=== PATIENT | male | born 1975 | race Caucasian/White ===

== ENCOUNTER 2019-06-11 09:07 | Emergency (ER) | payer BC, SELFPAY ==
--- NOTE | ~2019-06-11 | XR_ITS ---
EXAMINATION: XR chest 2V 06/11/2019 09:27 INDICATION: Cough, shortness of breath, fever. PROCEDURE: 2 view chest COMPARISON: 08/17/2012 FINDINGS: The lungs are clear. The cardiomediastinal silhouette is within normal limits. There are no pleural effusions. There is no pneumothorax suspected. IMPRESSION: 1: NO ACUTE CARDIOPULMONARY DISEASE. Reviewed, dictated and finalized at location B. LAWYER
[2019-06-11 09:14] VITALS: BP 147/91; PULSE 72; RESP 17; TEMP 37.2; O2SAT 99
--- NOTE | 2019-06-11 09:18 | ED.URI ---
HPI - URI/Sore Throat General Chief Complaint: Fever Stated Complaint: fever, fatigue Time Seen by Provider: 06/11/19 09:16 Source: patient and RN notes reviewed Mode of arrival: ambulatory Limitations: no limitations History of Present Illness HPI Narrative: Pt is a 43 y/o male who presents to the ED with c/o flu-like symptoms starting 5 days ago. He notes that he has been tired and fatigued for the past 5 days. Pt also reports a mild cough, intermittent fever, nausea, and diarrhea for the past several days. He notes that his temperature was 102.5 degrees several days ago, but states that he has been able to keep his temperature down with Ibuprofen and cold medicine. Pt notes that he has also had rt lower chest pain, which he states has been intermittent for the past several years. He denies any sore throat, vomiting, dysuria, or decreased intake. MD elicited complaint: other (flu-like symptoms) Onset (ago): day(s) (5) Relieving factors: NSAID and OTC cold medicine Associated symptoms: fever, cough, chest pain (rt lower chest pain), nausea, diarrhea and other (fatigue) Treatments prior to arrival: cold medicine Related Data Allergies Allergy/AdvReac Type Severity Reaction Status Date / Time No Known Allergies Allergy Unverified 11/29/13 19:48 Review of Systems Review of Systems: All systems reviewed & are unremarkable except as noted in HPI and below Constitutional: Constitutional: Denies chills, Reports fatigue, Reports fever(s), Denies headache(s), Denies weakness and Denies other (decreased intake) ENT: Denies headache(s), Denies neck pain and Denies sore throat Cardiovascular: Cardiovascular: Reports chest pain (rt lower chest pain) and Denies dyspnea Respiratory: Respiratory: Reports cough and Denies dyspnea Gastrointestinal: Gastrointestinal: Denies abdominal pain, Reports diarrhea, Reports nausea and Denies vomiting Genitourinary: Genitourinary: Denies hematuria and Denies dysuria Musculoskeletal: Musculoskeletal: Denies back pain and Denies neck pain PMFSH Past Medical History Medical History HLD (hyperlipidemia) HTN (hypertension) Rectal bleeding Sciatica Sleep apnea uses CPAP at night Surgical History Surgical History No significant past surgical history Family History Family History (Updated 07/16/13 @ 22:43 by DOCTOR UNKNOWN) Father Patient's father is Social History Social History Second hand tobacco smoke exposure: No Alcohol intake: current Gender identity (if verbalized by the patient): Male Exam Const: General: no acute distress and well developed Orientation/consciousness: oriented to person, oriented to place, oriented to time and patient oriented x3 HENMT: Head: normocephalic Neck: Neck: normal visual inspection and full ROM Chest: Chest palpation & inspection: normal inspection of the chest and no tenderness Resp: Effort & Inspection: normal respiratory effort Auscultation: clear to auscultation bilaterally Cardio: Rate: regular rate Rhythm: regular rhythm GI: GI Palp: No abdominal tenderness and Yes Soft to palpation Skin: General skin exam: normal color and turgor normal Neuro: General: oriented to person, oriented to place, oriented to time and patient oriented x3 Cognition (Neuro): normal cognition Extrem: General: normal to inspection, full ROM and no pedal edema Psych: Appearance: grossly normal Mental Status: mental status grossly normal Affect: normal affect Course Vital Signs Vital signs: Vital Signs Temperature 37.2 C 06/11/19 09:14 Pulse Rate 72 06/11/19 09:14 Respiratory Rate 17 06/11/19 09:14 Blood Pressure 147/91 H 06/11/19 09:14 Pulse Oximetry 99 06/11/19 09:14 Temperature 37.2 C 06/11/19 09:14 Pulse Rate 72 06/11/19 09:14 Respiratory Rate
[2019-06-11 09:48] LABS: Basophils Percent Auto 0.3 % (0.2-1.2); Eosinophils Percent Auto 0.2 % (0-4.4); Hematocrit 45.2 % (42.0-52.0); Hemoglobin 15.2 g/dL (14.0-18.0); Immature Granulocyte Absolute 0.03 K/mm3 (0.00-0.031); Immature Granulocyte Percent A 0.5 % (0-0.5); Lymphocytes Absolute Auto 1.17 K/mm3 (0.9-3.2); Lymphocytes Percent Auto 17.9 % (18.3-44.2); Mean Corpuscular HGB Conc 33.6 g/dl (32-36); Mean Corpuscular Hemoglobin 30.9 pg (26-34); Mean Corpuscular Volume 91.9 fl (80-100); Mean Platelet Volume 9.3 fl (7.4-10.4); Monocytes Absolute Auto 0.9 K/mm3 (0.1-0.6); Monocytes Percent Auto 13.3 % (2.6-8.5); Neutrophils Absolute Auto 4.4 K/mm3 (1.3-6.7); Neutrophils Percent Auto 67.8 % (45.5-73.1); Platelet Count Result 218 k/mm3 (150-375); Red Blood Count 4.92 M/mm3 (4.6-6.20); Red Cell Distribution Width 12.5 % (11.5-14.5); White Blood Count 6.5 K/mm3 (4.5-10.0)
[2019-06-11 10:02] LABS: Alanine Aminotransferase 21 U/L (4-50); Albumin Level 4.4 g/dL (3.5-5.1); Alkaline Phosphatase 66 U/L (38-126); Aspartate Amino Transferase 27 U/L (17-59); Bilirubin,Total 0.4 mg/dL (0.2-1.3); Blood Urea Nitrogen 12 mg/dL (9-20); Calcium 9.3 mg/dL (8.4-10.2); Carbon Dioxide 28 mmol/L (22-30); Chloride 102 mmol/L (98-107); Estimated CRCL calculation 89 ml/min; Estimated Glomerular Filt Rate > 60; Glucose 114 mg/dL (75-110); Potassium 4.1 mmol/L (3.4-5.0); Sodium 136 mmol/L (137-145)
[2019-06-11 10:20] LABS: Add Urine Microscopic? YES; Appearance Urine Clear (Clear); Bacteria Urine Trace /hpf; Bilirubin Urine Negative (Negative); Blood Urine Negative (Negative); Color Urine Yellow (Yellow); Glucose Urine UA Negative (Negative); Ketones Urine Trace mg/dL (Negative); Leukocyte Esterase Ur Negative LEU/UL (Negative); Mucus Urine Rare /lpf; Nitrate Urine Negative (Negative); Protein Urine Negative (Negative); RBC Urine 0-2 /hpf (0-2); Urobilinogen Urine Negative mg/dL (<2.0); WBC Urine 0-3 /hpf
[2019-06-11 10:42] VITALS: BP 142/85; PULSE 62; RESP 20; O2SAT 98
== END 2019-06-11 10:43 | disposition home or self-care (01) ==
PROVIDERS: Emergency Provider Emergency Medicine; PCP Emergency Medicine
DX: J10.1 Influenza due to other identified influenza virus with other respiratory manifestations (principal); E78.5 Hyperlipidemia, unspecified; I10 Essential (primary) hypertension; G47.30 Sleep apnea, unspecified
CPT/HCPCS: 36415; 71046; 80053; 81001; 85025; 87804; 99283

== ENCOUNTER 2020-06-07 07:40 | Outpatient (CLI) | payer BC, SELFPAY ==
--- NOTE | 2020-06-07 | EST_ITS ---
Patient Info Name: Cash Callejas Age: 44 years : 1975 Gender: Male Ht: 69 in Wt: 195 lbs BSA: 2.10 m2 Exam Date: 06/07/2020 11:04 AM Exam Location: [facility] Stress Patient Status: Outpatient Admit Date: 06/07/2020 Staff Ordering Physician: Armando Becker DO Attending Provider: Armando Becker DO Exercise Technologist: Curt Man RDCS, RT Exercise Physician: Armando Becker DO Exam Type: CA stress leydi w NM Study Info A regadenoson stress test was performed. Summary 1. 1. Negative lexiscan stress test for ischemic ST changes by ECG criteria. 2. 2. Stable hemodynamics throughout the test. 3. 3. Nuclear scan to follow and will be reported separately. Please correlate with it. 4. 4. Patient informed of the above results. Protocol: Lexiscan Stress ECG Details Stage: REST Duration (min): 1 min : 8 sec HR (bpm): 62 SBP (mmHg): 115 DBP (mmHg): 81 Stage: REST Duration (min): 15 min : 34 sec HR (bpm): 61 SBP (mmHg): 115 DBP (mmHg): 81 Stage: STAGE 1 Duration (min): 0 min : 59 sec HR (bpm): 97 SBP (mmHg): 128 DBP (mmHg): 88 Stage: RECOVERY Duration (min): 1 min : 0 sec HR (bpm): 86 SBP (mmHg): 128 DBP (mmHg): 88 Stage: RECOVERY Duration (min): 2 min : 0 sec HR (bpm): 88 SBP (mmHg): 120 DBP (mmHg): 81 Stage: RECOVERY Duration (min): 3 min : 0 sec HR (bpm): 82 SBP (mmHg): 115 DBP (mmHg): 78 Stage: RECOVERY Duration (min): 3 min : 39 sec HR (bpm): 84 SBP (mmHg): 115 DBP (mmHg): 78 Rest HR: 61 bpm Peak HR: 97 bpm Rest Sys BP: 115 mmHg Peak Sys BP: 128 mmHg Max Pred HR: 175 bpm % Max Pred HR: 55 % Target HR: 149 bpm Max RPP: 12,416 bpm*mmHg Termination Reason: Completed protocol Cardiac Symptoms: Shortness of breath Total Time: 1 min : 0 sec Rest Howe BP: 81 mmHg Peak Howe BP: 88 mmHg Total Dose: 0.4 mg Resting ECG Sinus rhythm, borderline T wave in inferior leads. Stress ECG No ST changes. Arrhythmias None. Report Signatures
--- NOTE | ~2020-06-07 | NM_ITS ---
EXAMINATION: NM leydi stress w perfusion DATE: 06/07/2020 12:52 INDICATION: Chest pain. TECHNIQUE: Rest images were obtained following intravenous administration of 9.44 mCi Tc99m tetrofosm in (Myoview). The patient was infused intravenously with Lexiscan (regadenoson). Then, 28.3 mCi Tc99m tetrofosmin (Myoview) was administered intravenously, and prone and supine stress images were obtain ed. Data was reconstructed into short axis and horizontal and vertical long axis SPECT images. Gated SPECT images were also obtained. COMPARISON: Myocardial perfusion imaging 08/18/2012, chest CT 11/03/2016 FINDINGS: There is no definite reversible or fixed perfusion abnormality to suggest ischemia or infar ction. There is no segmental wall motion abnormality. Left ventricular ejection fraction measures 6 1%. IMPRESSION: 1. No definite ischemia or infarct. 2. Normal left ventricular ejection fraction measuring 61%. Reviewed, dictated and finalized at location A. RT SPECIALIST
--- NOTE | 2020-06-07 07:48 | ECHO_ITS ---
Patient Info Name: Cash Callejas Age: 44 years : 1975 Gender: Male Ht: 71 in Wt: 195 lbs BSA: 2.12 m2 HR: 58 bpm BP: 128 / 88 mmHg Heart Rhythm: Bradycardia Exam Date: 06/07/2020 8:03 AM Exam [facility] Patient Status: Outpatient Admit Date: 06/07/2020 Staff Ordering Physician: Armando Becker DO Turner Machine Operator: Aurelia Lott RDCS Attending Provider: Armando Becker DO Referring Physician: Eugenio BERNAL; Exam Type: CA echo doppler color flow Study Info Indications R07.9 - Chest pain, unspecified R06.00 - Dyspnea, unspecified Complete two-dimensional, color flow and Doppler transthoracic echocardiogram is performed. Summary 1. Complete two-dimensional, color flow and Doppler transthoracic echocardiogram is performed. 2. Left ventricular chamber dimension is normal. 3. Left ventricular systolic function is normal, estimated at 60-65%. 4. There is mildly increased left ventricular wall thickness. 5. The left ventricular diastolic function is grade II diastolic dysfunction. 6. E/e' 10 is mildly elevated. 7. There is trace tricuspid valve regurgitation. 8. No pulmonary hypertension, estimated pulmonary arterial systolic pressure is 34 mmHg. 9. There is trace pulmonic regurgitation. Left Ventricle E/e' 10 is mildly elevated. Left ventricular chamber dimension is normal. Left ventricular systolic function is normal, estimated at 60-65%. There is mildly increased left ventricular wall thickness. The left ventricular diastolic function is grade II diastolic dysfunction. Right Ventricle Right ventricular chamber dimension is normal. Right ventricular systolic function is normal. Left Atria Left atrial chamber dimension is normal. Right Atria Right atrial chamber dimension is normal. Aortic Valve The aortic valve is trileaflet. There is no aortic valve stenosis. There is no aortic valve regurgitation. Pulmonic Valve There is trace pulmonic regurgitation. Mitral Valve There is no mitral valve stenosis. There is no mitral valve regurgitation. Tricuspid Valve There is trace tricuspid valve regurgitation. No pulmonary hypertension, estimated pulmonary arterial systolic pressure is 34 mmHg. Pericardium/Pleural There is no pericardial effusion. Inferior Vena Cava Normal inferior vena cava with >50% collapse upon inspiration consistent with normal right atrial pressure, 5 mmHg. Aorta The aortic root size at the sinus of Valsalva is normal. Left Ventricular Outflow Tract Name Value Normal LVOT 2D LVOT Diameter 2.2 cm LVOT Doppler LVOT Peak Gradient 6 mmHg LVOT Mean Gradient 2 mmHg LVOT VTI 26 cm LVOT VTI/AV VTI Ratio 0.8 LVOT Stroke Volume 98 ml LVOT CO 15.7 l/min LVOT CI 7.4 l/min/m2 Pulmonic Valve Name Value Normal ------
== END 2020-06-07 07:41 | disposition home or self-care (01) ==
PROVIDERS: PCP Emergency Medicine; Visit Provider Internal Medicine Cardiovascular Disease
DX: R07.89 Other chest pain (principal); R06.00 Dyspnea, unspecified; G47.30 Sleep apnea, unspecified
CPT/HCPCS: 78452; 93017; 93306; A9502; J2785

== ENCOUNTER → 2020-11-25 03:51 | Outpatient (CLI) | payer BC, SELFPAY ==
[2020-11-26 01:36] LABS: SARS-CoV-2 RNA PCR Negative
== END ==
PROVIDERS: PCP Emergency Medicine; Visit Provider Surgery
DX: Z01.812 Encounter for preprocedural laboratory examination (principal); K64.9 Unspecified hemorrhoids; Z20.822 Contact with and (suspected) exposure to COVID-19
CPT/HCPCS: C9803; U0003; U0005

== ENCOUNTER 2020-11-29 01:34 | Day surgery (SDC) | payer BC, SELFPAY ==
[2020-11-22 17:49] VITALS: BMI 28.3
--- NOTE | 2020-11-28 13:51 | WPDANESEPPF ---
Anes - Initial Pre Proc Eval Procedure: Operation Date: 11/29/20 09:30 Proposed Procedures p Rectal Exam Under Anesthesia, - Roney John DO s Transanal Hemorrhoid Dearterialization - Roney John DO Date/Time: 11/28/20 13:51 Surgeon: Roney John DO Pre Op Diagnosis: grade 2 internal hemorrhoid Patient Data Age: 45 Gender: M Height: 1.79 m Weight: 90.9 kg Allergies Allergy/AdvReac Type Severity Reaction Status Date / Time No Known Allergies Allergy Verified 11/29/20 08:04 Home Medications Medication Instructions Recorded Confirmed Type alprazolam 1 mg tablet 1 mg PO HS 04/18/20 11/22/20 History rosuvastatin 20 mg tablet 20 mg PO DAILY 04/18/20 11/22/20 History Lacto.acidophilus-Bif.animalis 1 cap PO DAILY 11/22/20 11/29/20 History [Daily Probiotic] ascorbate calcium (vitamin C) 1,000 mg PO DAILY 11/22/20 11/29/20 History cholecalciferol (vitamin D3) 125 mcg PO DAILY 11/22/20 11/29/20 History [Vitamin D3] vitamin B complex [B 1 tablet PO DAILY 11/22/20 11/22/20 History Complex-Vitamin B12] Patient hx anesthesia problems: none Family hx anesthesia problems: none PMFSH Past Medical History Medical History (Updated 10/26/20 @ 15:56 by Klarissa Davis) HLD (hyperlipidemia) HTN (hypertension) Intermittent palpitations Rectal bleeding Sciatica Sleep apnea uses CPAP at night Syncope and collapse Surgical History Surgical History No significant past surgical history Family History Family History Father Patient's father is Sibling Hypertension Mother Diabetes mellitus Social History Social History Smoking packs per day: 1 Smoking cigarettes per day: 20.0 Years smoked: 30 Smoking pack-years: 30.00 Smoking status: Former smoker Tobacco type: cigarettes Second hand tobacco smoke exposure: No Smoking end date: 09/05/18 Alcohol intake: current Drinks per week: 6 Substance use type: marijuana Living arrangements: with family Gender identity (if verbalized by the patient): Male Spiritual care concerns: No Anes - Eval Final PreProcedure Day of Procedure 11/28/20 13:51 Patient weight: overweight Heart: regular rate and rhythm Lungs: clear to auscultation and normal air movement Airway: Mallampati scale class II Neurological: alert and oriented Last oral intake: >/= 8 hours ASA classification: III Emergent: no Anesthetic plan: proceed Anesthesia type and monitoring: general ETT and standard monitoring Informed Consent: The patient's anesthetic plan and its attendant risks and benefits were discussed with the patient/family/POA. Questions were solicited and answers provided to the satisfaction of the patient/family/POA.
[2020-11-29] VITALS (8 sets, daily range): BP systolic 106–132; BP diastolic 60–89; PULSE 56–68; RESP 10–16; TEMP 36.4–36.6; O2SAT 96–100; BMI 28.4
[2020-11-29] MEDS: LACTATED RINGERS 1,000 ML 30 ML IV CONT ×2 (08:10→11:48)
[2020-11-29] MEDS: ACETAMINOPHEN 500 MG TABLET 1000 MG PO (08:20)
[2020-11-29] MEDS: KETOROLAC 15 MG/ML VIAL (*BKC) IV PUSH (08:20)
--- NOTE | 2020-11-29 09:22 | PM.IMHP ---
H&P: HPI History of Present Illness Date/Time: 11/29/20 09:22 Chief Complaint: Bleeding internal hemorrhoids Narrative: This is a 45-year-old man who presents for hemorrhoid surgery. He was experiencing internal hemorrhoid bleeding. Discussions were made with the patient and decision was made to proceed with THC procedure. He reports no changes since being seen in the office. Review of Systems Review of Systems: All systems reviewed & are unremarkable except as noted in HPI and below Constitutional: Constitutional: Denies chills, Denies fever(s), Denies headache(s) and Denies weight loss Eyes: Eyes: Denies change in vision ENT: Denies dizziness, Denies headache(s), Denies neck mass and Denies throat swelling Cardiovascular: Cardiovascular: Denies chest pain, Denies lightheadedness and Denies dyspnea Respiratory: Respiratory: Denies cough, Denies dyspnea and Denies wheezing Gastrointestinal: Gastrointestinal: Denies abdominal pain, Denies change in bowel habits, Denies nausea and Denies vomiting Genitourinary: Genitourinary: Denies hematuria and Denies dysuria Musculoskeletal: Musculoskeletal: Reports as per HPI Integumentary/Breasts: Skin/Breast: Reports as per HPI Neurologic: Denies dizziness and Denies headache(s) Allergic/Immunologic: Allergic/Immunologic: Denies throat swelling and Denies wheezing [facility] Past Medical History Medical History (Updated 10/26/20 @ 15:56 by Klarissa Davis) HLD (hyperlipidemia) HTN (hypertension) Intermittent palpitations Rectal bleeding Sciatica Sleep apnea uses CPAP at night Syncope and collapse Surgical History Surgical History No significant past surgical history Family History Family History Father Patient's father is Sibling Hypertension Mother Diabetes mellitus Social History Social History Smoking packs per day: 1 Smoking cigarettes per day: 20.0 Years smoked: 30 Smoking pack-years: 30.00 Smoking status: Former smoker Tobacco type: cigarettes Second hand tobacco smoke exposure: No Smoking end date: 09/05/18 Alcohol intake: current Drinks per week: 6 Substance use type: marijuana Living arrangements: with family Gender identity (if verbalized by the patient): Male Spiritual care concerns: No Meds Home Medications and Allergies Home Medications Medication Instructions Recorded Confirmed Type alprazolam 1 mg tablet 1 mg PO HS 04/18/20 11/22/20 History rosuvastatin 20 mg tablet 20 mg PO DAILY 04/18/20 11/22/20 History Lacto.acidophilus-Bif.animalis 1 cap PO DAILY 11/22/20 11/29/20 History [Daily Probiotic] ascorbate calcium (vitamin C) 1,000 mg PO DAILY 11/22/20 11/29/20 History cholecalciferol (vitamin D3) 125 mcg PO DAILY 11/22/20 11/29/20 History [Vitamin D3] vitamin B complex [B 1 tablet PO DAILY 11/22/20 11/22/20 History Complex-Vitamin B12] Allergies Allergy/AdvReac Type Severity Reaction Status Date / Time No Known Allergies Allergy Verified 11/29/20 08:04 Vital Signs Vital Signs - 24 hr 11/29/20 07:55 Temperature 36.6 C Pulse Rate 68 Respiratory Rate 14 Blood Pressure 127/84 Pulse Oximetry 98 Exam Const: General: no acute distress and alert Orientation/consciousness: patient oriented x3 HENMT: Head: normocephalic and atraumatic Ears: hearing grossly normal bilaterally General nose exam: Normal nares present Mouth: Yes Normal oral and palatal mucosa present Eyes: Periorbital: periorbital findings normal Sclera: sclerae normal EOM: EOMs intact bilaterally Neck: Neck: normal visual inspection, no lymphadenopathy and trachea midline Chest: Chest palpation & inspection: normal inspection of the chest Resp: Effort & Inspection: normal respiratory effort Auscultation:
--- NOTE | 2020-11-29 09:25 | WPDHPUPDATE1 ---
History and Physical Update Update Date/Time: 11/29/20 09:25 History and Physical has been reviewed, including an updated exam of the patient. There are NO changes in the patient's condition. Risks, benefits, and alternatives have been discussed and questions answered. Patient agrees to proceed with procedure.
[2020-11-29] MEDS: ceFAZolin 2 GM/D5W 50 ML 2 GM/50 ML BAG IVPB (09:45)
[2020-11-29] MEDS: BUPIVACAINE/EPINEPHRINE 0.5% 50 ML VIAL (10:12)
--- NOTE | 2020-11-29 10:38 | W.PM.PROC2 ---
Procedure Note - Detailed Date of Procedure 11/29/20 Pre-op Diagnosis grade 2 internal hemorrhoid Post-op Diagnosis same Procedure Performed 1. Multiple hemorrhoid ligation (Transanal hemorrhoid dearterialization procedure) Surgeon Roney John, DO Anesthesia general and local ( 0.5% bupivacaine with epinephrine) Indications This is a 45-year-old man who presented with rectal bleeding. He has been experiencing bleeding after bowel movements for months. He has had a recent colonoscopy. He was found to have internal hemorrhoids on exam. Discussions were made with the patient about treatment options and decision was made to proceed with rectal exam under anesthesia with multiple hemorrhoid ligation (THD procedure). Findings THD procedure was performed. Upon examination initially with anoscope, patient was found to have predominantly more prolapsing hemorrhoid tissue in the right posterior region. Was also some prolapsing hemorrhoidal tissue in the left posterior region as well. The Doppler anoscope was used to identify the pulsatile vessels in the typical locations. After performing ligation of all 6 vessels is, careful inspection was made around the anorectal canal. No other prolapsing tissue was identified and there was no need for mucosal proctopexy. Description of Procedure Procedure as well as risks, benefits, and alternatives were discussed with the patient. Written consent was obtained and placed in chart prior to procedure. Patient was brought back to surgical suite. He was placed supine hospital stretcher. He was then intubated by the Anesthesia Department. He was then repositioned into prone lopez-knife position and his buttocks were taped apart on each side. His perirectal area was prepped and draped in sterile fashion using Betadine prep. Time-out was done to confirm patient and procedure. Digital rectal exam was initially performed. A Hill-Bean anoscope was then inserted in the anorectal canal was carefully inspected. Prolapsing internal hemorrhoids were identified, but no other significant abnormalities were noted. The THD Doppler anoscope was then inserted. The pulsatile hemorrhoidal vessel was initially identified in the 1 o'clock location. A 2 0 Vicryl [id number] suture was placed at this location and the suture was tied down to ligate the vessel. This was then repeated in the 3, 5, 7, 9, and 11 o'clock positions. All Doppler signals were easily identified in each location. After completing this portion of the procedure, I then examined the anoderm and anal mucosa for any persistent prolapsing tissue. One final inspection was made around the anal rectal canal and no other abnormalities were noted. 0.5% bupivacaine with epinephrine was infiltrated locally around the anus. The patient was then awakened from anesthesia, extubated, and transferred to recovery. Estimated Blood Loss 20 Complications No immediate complications Condition stable Disposition same day
[2020-11-29] MEDS: fentaNYL CITRATE INJ (*CRX) 100 MCG/2 ML VIAL 25 MCG IV PUSH ×2 (11:24→11:35)
== END 2020-11-29 12:48 | disposition home or self-care (01) ==
PROVIDERS: PCP Emergency Medicine; Visit Provider Surgery
PROC: (CPT 46948; principal; 2020-11-29 09:30)
PROC: (CPT 46948; 2020-11-29 09:30)
DX: K64.1 Second degree hemorrhoids (principal); E78.5 Hyperlipidemia, unspecified; G47.30 Sleep apnea, unspecified; Z86.79 Personal history of other diseases of the circulatory system; Z87.891 Personal history of nicotine dependence; Z79.899 Other long term (current) drug therapy
CPT/HCPCS: 46948; A9270; C9290; J0330; J0690; J1100; J1885; J2250; J2405; J2704; J3010; J7120

== ENCOUNTER 2020-12-20 12:45 | Outpatient (CLI) | payer BC, SELFPAY ==
--- NOTE | ~2020-12-20 | CT_ITS ---
EXAMINATION: CT pelvis w con EXAM DATE: 12/20/2020 13:50 INDICATION: K60.2 - Anal fissure, unspecified Anal fissure, difficulty urinating. Hemorrhoid surger y 11/29. TECHNIQUE: Spiral CT pelvis was performed following intravenous injection of 100 mL Omnipaque 350. A xial, coronal and sagittal images were reviewed. The dose-length product (DLP) for this examination was 550 mGy-cm. The exposure was tailored according to patient size (auto mA exposure control), and iterative reconstruction (ASIR) was used as additional dose reduction technique. Comparison is made t o prior examination from 2016. FINDINGS: There is mild fat stranding surrounding the anus probably postoperative. Peritoneum otherwi se unremarkable. There is rectosigmoid fluid and enhancing mucosa, could be diarrhea. There is no zayda or rectal or pelvic abscess. There are several presacral lymph nodes which are likely reactive measur ing up to 8 x 10 mm. Inguinal canals are normal. No pelvic lymphadenopathy. Normal appendix. Mild sca ttered aortic arteriosclerosis. Prostate normal in size. There are no osteoblastic or osteolytic lesi ons identified. IMPRESSION: 1. Small amount of rectal fluid. 2. Mild perianal fat stranding without abscess. Reviewed, dictated and finalized at location B.
== END 2020-12-20 12:46 | disposition home or self-care (01) ==
LOC: ANHIMG 12:48
PROVIDERS: PCP Emergency Medicine; Visit Provider Surgery
DX: K60.2 Anal fissure, unspecified (principal); K64.1 Second degree hemorrhoids
CPT/HCPCS: 72193; Q9967

== ENCOUNTER 2020-12-21 01:48 | Day surgery (SDC) | payer BC, SELFPAY ==
[2020-12-20 13:17] VITALS: BMI 28.8
[2020-12-21] VITALS (9 sets, daily range): BP systolic 123–136; BP diastolic 71–86; PULSE 61–76; RESP 10–17; TEMP 36.3–37.1; O2SAT 94–100; BMI 28.3
[2020-12-21] MEDS: ACETAMINOPHEN 500 MG TABLET 1000 MG PO (12:33)
--- NOTE | 2020-12-21 12:41 | PM.IMHP ---
H&P: HPI History of Present Illness Date/Time: 12/21/20 12:41 Chief Complaint: Rectal pain Narrative: Patient continues to have severe rectal pain after THD procedure 11/29. A fissure was suspected, but he has tried some of the nifedipine ointment with no real relief. A CT was done yesterday which only shows some inflammatory changes, but no abscess or hematoma. Review of Systems Review of Systems: All systems reviewed & are unremarkable except as noted in HPI and below Constitutional: Constitutional: Denies chills, Denies fever(s), Denies headache(s) and Denies weight loss Eyes: Eyes: Denies change in vision ENT: Denies dizziness, Denies headache(s), Denies neck mass and Denies throat swelling Cardiovascular: Cardiovascular: Denies chest pain, Denies lightheadedness and Denies dyspnea Respiratory: Respiratory: Denies cough, Denies dyspnea and Denies wheezing Gastrointestinal: Gastrointestinal: Reports as per HPI, Denies abdominal pain, Denies nausea and Denies vomiting Genitourinary: Genitourinary: Denies hematuria and Denies dysuria Musculoskeletal: Musculoskeletal: Reports as per HPI Integumentary/Breasts: Skin/Breast: Reports as per HPI Neurologic: Denies dizziness and Denies headache(s) Allergic/Immunologic: Allergic/Immunologic: Denies throat swelling and Denies wheezing PMFSH Past Medical History Medical History HLD (hyperlipidemia) HTN (hypertension) Intermittent palpitations Rectal bleeding Sciatica Sleep apnea uses CPAP at night Syncope and collapse Surgical History Surgical History H/O hemorrhoidectomy 11/29/20 Multiple hemorrhoid ligation (Transanal hemorrhoid dearterialization procedure) Family History Family History Father Patient's father is Sibling Hypertension Mother Diabetes mellitus Social History Social History Smoking packs per day: 1 Smoking cigarettes per day: 20.0 Years smoked: 30 Smoking pack-years: 30.00 Smoking status: Former smoker Tobacco type: cigarettes Second hand tobacco smoke exposure: No Smoking end date: 09/05/18 Alcohol intake: current Drinks per week: 6 Substance use: current Substance use type: marijuana Gender identity (if verbalized by the patient): Male Spiritual care concerns: No Meds Home Medications and Allergies Home Medications Medication Instructions Recorded Confirmed Type alprazolam 1 mg tablet 1 mg PO HS 04/18/20 12/21/20 History rosuvastatin 20 mg tablet 20 mg PO DAILY 04/18/20 12/21/20 History Daily Probiotic 1 cap PO DAILY 11/22/20 12/21/20 History ascorbate calcium (vitamin C) 1,000 mg PO DAILY 11/22/20 12/21/20 History cholecalciferol (vitamin D3) 125 mcg PO DAILY 11/22/20 12/21/20 History [Vitamin D3] vitamin B complex [B 1 tablet PO DAILY 11/22/20 12/21/20 History Complex-Vitamin B12] hydrocortisone acetate 25 mg 25 mg RECTAL DAILY #12 ea 12/18/20 12/21/20 Rx rectal suppository oxycodone-acetaminophen 5 mg-325 1 tablet PO Q4H PRN #15 tablet 12/18/20 12/21/20 Rx mg tablet Allergies Allergy/AdvReac Type Severity Reaction Status Date / Time No Known Allergies Allergy Verified 12/21/20 11:44 Exam Const: General: no acute distress and alert Orientation/consciousness: patient oriented x3 HENMT: Head: normocephalic and atraumatic Ears: hearing grossly normal bilaterally General nose exam: Normal nares present Mouth: Yes Normal oral and palatal mucosa present Eyes: Periorbital: periorbital findings normal Sclera: sclerae normal EOM: EOMs intact bilaterally Neck: Neck: normal visual inspection, no lymphadenopathy and trachea midline Chest: Chest palpation & inspection: normal inspection of the chest Resp: Effort & Inspection:
--- NOTE | 2020-12-21 12:44 | WPDHPUPDATE1 ---
History and Physical Update Update Date/Time: 12/21/20 12:44 History and Physical has been reviewed, including an updated exam of the patient. There are NO changes in the patient's condition. Risks, benefits, and alternatives have been discussed and questions answered. Patient agrees to proceed with procedure.
[2020-12-21] MEDS: KETOROLAC 15 MG/ML VIAL (*BKC) IV PUSH (12:46)
--- NOTE | 2020-12-21 12:47 | WPDANESEPPF ---
Anes - Initial Pre Proc Eval Procedure: Operation Date: 12/21/20 13:00 Proposed Procedures p Rectal Exam Under Anesthesia - Roney John DO Date/Time: 12/21/20 12:47 Surgeon: Roney John DO Pre Op Diagnosis: Anal Fissure, Grade II Hemorrhoid Patient Data Age: 45 Gender: M Height: 1.78 m Weight: 89.6 kg Allergies Allergy/AdvReac Type Severity Reaction Status Date / Time No Known Allergies Allergy Verified 12/21/20 11:44 Home Medications Medication Instructions Recorded Confirmed Type alprazolam 1 mg tablet 1 mg PO HS 04/18/20 12/21/20 History rosuvastatin 20 mg tablet 20 mg PO DAILY 04/18/20 12/21/20 History Daily Probiotic 1 cap PO DAILY 11/22/20 12/21/20 History ascorbate calcium (vitamin C) 1,000 mg PO DAILY 11/22/20 12/21/20 History cholecalciferol (vitamin D3) 125 mcg PO DAILY 11/22/20 12/21/20 History [Vitamin D3] vitamin B complex [B 1 tablet PO DAILY 11/22/20 12/21/20 History Complex-Vitamin B12] hydrocortisone acetate 25 mg 25 mg RECTAL DAILY #12 ea 12/18/20 12/21/20 Rx rectal suppository oxycodone-acetaminophen 5 mg-325 1 tablet PO Q4H PRN #15 tablet 12/18/20 12/21/20 Rx mg tablet Patient hx anesthesia problems: none Family hx anesthesia problems: none PMFSH Past Medical History Medical History HLD (hyperlipidemia) HTN (hypertension) Intermittent palpitations Rectal bleeding Sciatica Sleep apnea uses CPAP at night Syncope and collapse Surgical History Surgical History H/O hemorrhoidectomy 11/29/20 Multiple hemorrhoid ligation (Transanal hemorrhoid dearterialization procedure) Family History Family History Father Patient's father is Sibling Hypertension Mother Diabetes mellitus Social History Social History Smoking packs per day: 1 Smoking cigarettes per day: 20.0 Years smoked: 30 Smoking pack-years: 30.00 Smoking status: Former smoker Tobacco type: cigarettes Second hand tobacco smoke exposure: No Smoking end date: 09/05/18 Alcohol intake: current Drinks per week: 6 Substance use: current Substance use type: marijuana Gender identity (if verbalized by the patient): Male Spiritual care concerns: No Anes - Eval Final PreProcedure Day of Procedure 12/21/20 12:47 Patient weight: overweight Heart: regular rate and rhythm Lungs: clear to auscultation Airway: Mallampati scale class III Neurological: alert and oriented Last oral intake: >/= 8 hours ASA classification: III Emergent: no Anesthetic plan: proceed Anesthesia type and monitoring: general ETT and standard monitoring Informed Consent: The patient's anesthetic plan and its attendant risks and benefits were discussed with the patient/family/POA. Questions were solicited and answers provided to the satisfaction of the patient/family/POA.
[2020-12-21] MEDS: LACTATED RINGERS 1,000 ML 30 ML IV CONT (12:54)
[2020-12-21] MEDS: ceFAZolin 2 GM/D5W 50 ML 2 GM/50 ML BAG IVPB (13:00)
--- NOTE | 2020-12-21 13:42 | W.PM.PROC2 ---
Procedure Note - Detailed Date of Procedure 12/21/20 Pre-op Diagnosis Anal Fissure, Grade II Hemorrhoid Post-op Diagnosis other (Rectal abscess, suture granuloma) Procedure Performed 1. Rectal exam under anesthesia 2. Drainage of rectal abscess 3. Removal of Vicryl suture in rectum Surgeon Roney John, DO Anesthesia general and local (Exparel) Indications This is a 45-year-old man who presented with rectal pain after undergoing a hemorrhoid procedure on 11/29/2020. He underwent multiple hemorrhoid ligation for grade 2 bleeding internal hemorrhoids. He was having an unusual amount of pain postoperatively and was also having urinary hesitancy. He continued to have more severe pain in the rectum and was having pain with bowel movements and some occasional bleeding. A CT of his pelvis was performed yesterday and this showed some rectal inflammation but no evidence of abscess or hematoma. Discussions were made with the patient about treatment options and decision was made to proceed with rectal exam under anesthesia. Findings Rectal exam under anesthesia was performed. Upon initially performing a digital rectal exam, purulence fluid was noted draining from the rectum. A Hill-Bean anoscope was inserted and the anal rectal canal was carefully inspected. There did not appear to be any evidence of fissure, but the rectal mucosa appeared inflamed and very friable. There was some bleeding from the rectal mucosa, but this did not appear to be from internal hemorrhoids. This was likely related to infection and inflammation. Careful palpation around the rectal canal was performed and there did not appear to be any evidence of a focal abscess. The purulence fluid all appear drained after initial anoscopy. The area was irrigated with sterile saline and no further purulence fluid was visualized. There were 3 Vicryl sutures remaining from the previous procedure and these were removed to help alleviate any potential persistent pain. No specimens were obtained for pathology. Description of Procedure Procedure as well as risks, benefits, and alternatives were discussed with the patient. Written consent was obtained and placed in chart prior to procedure. Patient was brought back to surgical suite. He was placed supine on operating table. Time-out was done to confirm patient and procedure. He he was intubated by the Anesthesia Department. He was then repositioned into prone lopez-knife position. His perirectal area was prepped and draped in sterile fashion using Betadine prep. Digital rectal exam was initially performed. The Hill-Bean anoscope was then inserted in the anal rectal canal was inspected. Purulence fluid was drained from within the rectum, but no isolated abscess was visualized. The rectal mucosa appeared friable and inflamed. The area was irrigated and carefully palpated all around no other purulence was noted. Three Vicryl sutures were identified in the right anterior, left anterior, and right posterior positions. The sutures were removed to help alleviate any pressure or pain. After 1 final thorough examination, no other abnormalities were noted. Exparel was infiltrated locally around the perianal area, and then Gelfoam was inserted into the anal canal. Fluffed gauze ABD pad and mesh underwear were applied. The patient was then awakened from anesthesia, extubated, and transferred to recovery. Estimated Blood Loss 10 Packing Yes (Gelfoam) Complications No immediate complications Condition stable Disposition same day
[2020-12-21] MEDS: oxyCODONE HCL (*CRX) 5 MG TAB IR PO (14:50)
== END 2020-12-21 15:40 | disposition home or self-care (01) ==
PROVIDERS: PCP Emergency Medicine; Visit Provider Surgery
PROC: (CPT 46608; principal; 2020-12-21 13:00)
DX: K61.1 Rectal abscess (principal); M60.28 Foreign body granuloma of soft tissue, not elsewhere classified, other site; Z18.89 Other specified retained foreign body fragments; Z98.890 Other specified postprocedural states; I10 Essential (primary) hypertension; E78.5 Hyperlipidemia, unspecified; G47.33 Obstructive sleep apnea (adult) (pediatric); Z87.891 Personal history of nicotine dependence
CPT/HCPCS: 46608; A9270; C9290; J0330; J0690; J1100; J1885; J2250; J2405; J2704; J3010; J7120

== ENCOUNTER 2020-12-21 10:48 | Outpatient (CLI) | payer BC, SELFPAY ==
[2020-12-21 11:21] LABS: EDCOVIDSCREEN Negative (Negative)
== END 2020-12-21 10:49 | disposition home or self-care (01) ==
LOC: ANHSURGERY 10:50
PROVIDERS: PCP Emergency Medicine; Visit Provider Surgery
DX: Z01.812 Encounter for preprocedural laboratory examination (principal); Z20.822 Contact with and (suspected) exposure to COVID-19
CPT/HCPCS: 87426; C9803

== ENCOUNTER 2025-04-02 22:40 | Inpatient (IN) | payer SELFPAY ==
--- OUTSIDE RECORDS SUMMARY | 2025-04-01 11:15 | XMS_ITS | Encounter Summary ---
Author Organization [facility] Address [address] [place] [id number] Care Team Providers Care Adult Protective Caseworker Name Role Phone Alexi Howell MD Primary Care Provider [phone] Reason for Visit * Reason Comments Hypertension Encounter Details Date Type Department Care Team (Late st Contact Info) Description 04/01/2025 11:15 AM GEOTHERMAL PLANT MANAGER - 04/01/2025 12:10 PM GEOTHERMAL PLANT MANAGER Emergency [facility] [place], [place] [address] Christo Juarez, DO [address] [place] [address] [id number] Hypertension Discharge Disposition: Home or Self Care (Routine Discharge) Social History Tobacco Use Types Packs/Day Years Used Date Smoking Tobacco: Former Cigarettes Q uit: 09/2018 Smokeless Tobacco: Never Alcohol Use Standard Drinks/Week Comments Yes 0 (1 standard drink = 0.6 oz pur e alcohol) Sex and Gender Information Value Date Recorded Sex Assigned at Not on file Legal Sex Male 11:21 AM CDT Gender Identity Not on file Sexual Orientation Not on file 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 Not on file Not on file Not on file documented as of this encounter Last Filed Vital Signs Vital Sign Reading Time Taken Comments Blood Pressure 178/98 04/01/2025 10:47 AM GEOTHERMAL PLANT MANAGER Pulse 77 04/01/2025 10:47 AM GEOTHERMAL PLANT MANAGER Temperature 36.7 C (98 F) 04/01/2025 10:47 AM GEOTHERMAL PLANT MANAGER Respiratory Rate 18 04/01/2025 10:47 AM GEOTHERMAL PLANT MANAGER Oxygen Saturation 99% 04/01/2025 10:47 AM GEOTHERMAL PLANT MANAGER Inhaled Oxygen Concentration - - Weight 88.5 kg (195 lb 1.7 oz) 04/01/2025 10:47 AM GEOTHERMAL PLANT MANAGER Height 180.3 cm (5' 11) 04/01/2025 10:47 AM GEOTHERMAL PLANT MANAGER Body Mass Index 27.21 04/01/2025 10:47 AM GEOTHERMAL PLANT MANAGER documented in this encounter Functional Status * Calculated C-SSRS Risk Score (Lifetime/Recent) Answer Date of Assessment Author Status No Risk Indicated 04/01/2025 10:48 AM GEOTHERMAL PLANT MANAGER Annabel Gotti RN Active * [place] Suicide Severity Rating Scale (Screener/Recent Self-Report) Question Answer Date of Assessment Author Status 1. Wish to be (Past 1 Month) No 04/01/2025 10:48 AM GEOTHERMAL PLANT MANAGER Gregoria Gotti RN A ctive 2. Non-Specific Active Suicidal Thoughts (Past 1 Month) No 04/01/2025 10:48 AM GEOTHERMAL PLANT MANAGER Gregoria Gotti RN A ctive 6. Suicidal Behavior (Lifetime) No 04/01/2025 10:48 AM GEOTHERMAL PLANT MANAGER Gregoria Gotti RN A ctive documented as of this encounter Discharge Instructions * Discharge Instructions* Christo Juarez DO - 04/01/2025 11:50 AM GEOTHERMAL PLANT MANAGER At this time, we do not see any signs of the high blood pressure beating up your big organs, which include the brain, lungs, heart, and kidneys. Please record your blood pressure 3 times a day for the next 2 weeks, and take these numbers to your primary care provider. Based on the blood pressure trends, you may need an adjustment in your blood pressure medications. HERMAL PLANT MANAGER * Attachments The following attachments cannot be sent through Care Everywhere. * High blood pressure ??? ED discharge instructions ([place]) documented in this encounter Medications at Time of Discharge ALPRAZolam (XANAX) 1 MG tablet Take 1 tablet (1 mg total) by mouth nightly as needed. at bedtime 06/03/2022 amLODIPine (NORVASC) 10 MG tablet Take 1 tablet (10 mg total) by mouth daily. 30 tablet 03/27/2025 escitalopram (LEXAPRO) 10 MG tablet Take 1 tablet (10 mg total) by mouth daily. 06/03/2022 documented as of this encounter ED Notes * Imani Norris RN - 04/01/2025 11:55 AM CST Provider discussed today's findings with the patient/family. The patient has been given informationregarding their treatment, follow up and concerning symptoms for which they should seek urgent or emergent attention. All questions answered. Pt ambulated out of ED with all personal belongings. HERMAL PLANT MANAGER * Christo Juarez, - 04/01/2025 11:48 AM CSTAssociated Order(s): EKG Reading Chief Complaint Chief Complaint Patient presents with Hypertension History of Present Illness 57-year-old male presents emergency department with elevated blood pressure readings. Today, blood pressure readings systolic 160s and 170s. Last week, patient has systolic readings 130s. Denies having chest pain and shortness of breath. No nausea or vomiting at this time. Medical History ALLERGIES: Review of patient's allergies indicates: No Known Allergies MEDICATIONS: Prior to Admission medications Medication Sig Start Date End Date Taking? Authorizing Provider ALPRAZolam (XANAX) 1 MG tablet Take 1 tablet (1 mg total) by mouth nightly as needed. at bedtime 06/03/22 Default History Genericprovider amLODIPine (NORVASC) 10 MG tablet Take 1 tablet (10 mg total) by mouth daily. 03/27/25 [place] Curtis MD,PHD escitalopram (LEXAPRO) 10 MG tablet Take 1 tablet (10 mg total) by mouth daily. 06/03/22 Default History Genericprovider PAST MEDICAL HISTORY: Past Medical History[1] PAST SURGICAL HISTORY: Past Surgical History[2] FAMILY HISTORY: Family History[3] SOCIAL HISTORY: Social History[4] Review of Systems Review of Systems Physical Exam Filed Vitals: 04/01/25 1047 BP: (!) 178/98 Pulse: 77 Resp: 18 Temp: 98 ??F (36.7 ??C) TempSrc: Temporal SpO2: 99% Weight: 88.5 kg (195 lb 1.7 oz) Height: 1.803 m (5' 11) Physical Exam Vitals and nursing note reviewed. Constitutional: Appearance: Normal appearance. Cardiovascular: Rate and Rhythm: Normal rate and regular rhythm. Pulmonary: Effort: Pulmonary effort is normal. Breath sounds: Normal breath sounds. Neurological: General: No focal deficit present. Mental Status: He is alert and oriented to person, place, and time. Psychiatric: Mood and Affect: Mood normal. Behavior: Behavior normal. Diagnostic Studies / Procedures ELECTROCARDIOGRAMS: No results found for this visit on 04/01/25. LABORATORY STUDIES: No results found for this visit on 04/01/25. IMAGING STUDIES XR CHEST PORTABLE Final Result by User, [id number] (04/01 112) [address] [address] EXAMINATION: CHEST RADIOGRAPH SINGLE VIEW Exam date/time: 04/01/2025 10:49 AM Reason For Exam: hypertensive urgency Comparison: March 27, 2025 Technique: Upright AP view of the chest Findings: Heart size normal. Proximal airways unremarkable. No suspicious pulmonary lesion, pneumothorax, or pleural effusion. ===== IMPRESSION:===== No acute findings. Referred By: Interpreted By: Dany Allen MD, 04/01/2025 11:24 AM EKG Reading Date/Time: 04/01/2025 11:28 PM Performed by: Christo Juarez DO Authorized by: Christo Juarez DO Interpreted by ED physician Rhythm: sinus rhythm Rate: normal BPM: 63 QRS axis: normal Conduction: incomplete RBBB ST Segments: ST segments normal Clinical impression: abnormal ECG Comments: Nonspecific T wave changes. ED Course / Medical Decision Making Medical Decision Making Patient presents emergency department for elevated blood pressures. At this time, I do not see any signs of hypertensive emergency. Patient not having any chest pain. No need for blood work, troponinat this time. Counseled patient to monitor her blood pressure for the next couple of weeks. Patientmay need an adjustment in his blood pressure medications based on the trend of blood pressure readings. Will discharge patient back home. Problems Addressed: Hypertension, unspecified type: acute illness or injury Clinical Impression Hypertension, unspecified type (Primary) Disposition: Discharge [1] History reviewed. No pertinent past medical history. [2] History reviewed. No pertinent surgical history. [3] No family history on file. [4] Social History Tobacco Use Smoking status: Former Current packs/day: 0.00 Types: Cigarettes Quit date: 09/2018 Years since quittin.5 Smokeless tobacco: Never Substance Use Topics Alcohol use: Yes Drug use: Yes Types: Marijuana Comment: Every evening Christo Juarez DO 04/01/252217 HERMAL PLANT MANAGER * Gloria Haynes - 04/01/2025 11:15 AM CST Bed: 23 Expected date: Expected time: Means of arrival: Comments: HERMAL PLANT MANAGER * Chetan Chisholm NP - 04/01/2025 10:48 AM CST [place] EMERGENCY DEPARTMENT ENCOUNTER Medical Screening Examination 04/01/25 10:48 AM Chief Complaint : Hypertension HPI : Cash Callejas is a 49-year-old male who presents with multiple complaints. States that hehas been noting that he has high blood pressure. States that he has been seen by PCP for this who has upped his blood pressure medications, but has not picked it up due to holidays. Additionally, reports blood in stool. States that he has hst of ulcerative colitis. Vital Signs: Filed Vitals: 04/01/25 1047 BP: (!) 178/98 Pulse: 77 Resp: 18 Temp: 98 ??F (36.7 ??C) TempSrc: Temporal SpO2: 99% Weight: 88.5 kg (195 lb 1.7 oz) Height: 1.803 m (5' 11) Physical exam: A brief physical exam was completed to facilitate/expedite patient care. Plan: Necessary labs/imaging/medications ordered to initiate pt care. Chetna Chisholm NP 04/01/25 1049 Cosigned by Carolyn Umanzor MD at 04/01/2025 11:23 AM GEOTHERMAL PLANT MANAGER HERMAL PLANT MANAGER HERMAL PLANT MANAGER * Gregoria Gotti RN - 04/01/2025 10:45 AM CST Ambulatory to triage with headache, anxiety, teeth clenching since Friday. Tearful in triage. Concerned about hypertension, but has not been able to take the correct dosage of medication the last few days. Also complains of possible blood in stool, history of UC. HERMAL PLANT MANAGER documented in this encounter Plan of Treatment Not on file documented as of this encounter Procedures Procedure Name Priority Date/Time Associated Diagnosis Comments ELECTROCARDIOGRAM REPORT Routine 025 11:28 PM GEOTHERMAL PLANT MANAGER XR CHEST PORTABLE STAT 04/01/2025 11: 20 AM GEOTHERMAL PLANT MANAGER documented in this encounter Results * EKG Reading (04/01/2025 11:28 PM GEOTHERMAL PLANT MANAGER) Christo Carmichael DO - 04/01/2025 11:28 PM GEOTHERMAL PLANT MANAGER Christo Juarez DO 04/01/2025 10:18 PM EKG Reading Date/Time: 04/01/2025 11:28 PM Performed by: Christo Juarez DO Authorized by: Christo Juarez DO Interpreted by ED physician Rhythm: sinus rhythm Rate: normal BPM: 63 QRS axis: normal Conduction: incomplete RBBB ST Segments: ST segments normal Clinical impression: abnormal ECG Comments: Nonspecific T wave changes. Christo Juarez DO [facility] Final Result * XR CHEST PORTABLE (04/01/2025 11:20 AM GEOTHERMAL PLANT MANAGER) Anatomical Region Laterality Modality Chest Radiographic Debi ging 04/01/2025 11:2 4 AM GEOTHERMAL PLANT MANAGER Impressions 04/01/2025 11:25 AM GEOTHERMAL PLANT MANAGER IMPRESSION:===== No acute findings. Referred By: Interpreted By: Dany Allen MD, 04/01/2025 11:24 AM Narrative 04/01/2025 11:25 AM GEOTHERMAL PLANT MANAGER [place] [address] EXAMINATION: CHEST RADIOGRAPH SINGLE VIEW Exam date/time: 04/01/2025 10:49 AM Reason For Exam: hypertensive urgency Comparison: March 27, 2025 Technique: Upright AP view of the chest Findings: Heart size normal. Proximal airways unremarkable. No suspicious pulmonary lesion, pneumothorax, or pleural effusion. ===== Procedure Note Dany Allen MD - 04/01/2025 [place] [address] EXAMINATION: CHEST RADIOGRAPH SINGLE VIEW Exam date/time: 04/01/2025 10:49 AM Reason For Exam: hypertensive urgency Comparison: March 27, 2025 Technique: Upright AP view of the chest Findings: Heart size normal. Proximal airways unremarkable. No suspiciouspulmonary lesion, pneumothorax, or pleural effusion. ===== IMPRESSION:===== No acute findings. Referred By: Interpreted By: Dany Allen MD, 04/01/2025 11:24 AM Chetan Chisholm CONTRACT NEGOTIATION SPECIALIST GENERAL IMAGING Final Result documented in this encounter Visit Diagnoses Diagnosis Hypertension, unspecified type- Primary documented in this encounter Active and Recently Administered Medications Care Teams Adult Protective Caseworker Relationship Specialty Start Date End Date Alexi Howell MD [address] [place] [address] PCP - General FAMILY PRACTICE 06/07/22 documented as of this encounter
--- NOTE | ~2025-04-02 | XR_ITS ---
Examination: XR chest 1V portable Clinical History: chest pressure Comparison: 06/11/2019 Technique: Portable AP Findings: Heart size normal. Lungs clear. No acute bony abnormality. IMPRESSION: 1. No acute cardiopulmonary findings given portable technique. Reviewed, dictated and finalized at location R. RIGGER
--- NOTE | 2025-04-02 22:47 | ECG_ITS ---
Test Date: 2025-04-02 23:06:44 Measurements Intervals [place] Rate: 67 P: 7 NH: 162 QRS: 12 QRSD: 108 T: 15 QT: 355 QTc: 376 Interpretive Statements SINUS RHYTHM NONSPECIFIC T-WAVE ABNORMALITY- INFERIOR LEADS BORDERLINE ECG No previous ECG available for comparison Electronically Signed On 04-03-2025 08:09:24 IMAGING TECH by Armando Becker D.O.
[2025-04-02 22:52] VITALS: BP 153/95; PULSE 87; RESP 18; O2SAT 98
[2025-04-02 23:01] VITALS: BP 149/105; PULSE 92; RESP 18; O2SAT 97
--- NOTE | 2025-04-02 23:13 | ED.ARRPALP ---
HPI - Arrhythmia/Palpitations General Chief Complaint: Arrhythmia/Palpitations Stated Complaint: palpitations, HTN, chest feels heavy Time Seen by Provider: 04/02/25 22:51 History of Present Illness HPI narrative: 49-year-old male with history of hypertension and ulcerative colitis presenting to the emergency department today with chest heaviness and palpitations as well as elevated blood pressure readings. Patient states he has been to 3 separate ER visits for this over the last week and been told that his blood pressure just needs better control in recently started taking additional dose of his amlodipine from 5 mg to 10 mg 2 days ago. States he had a workup yesterday with a chest x-ray that was normal. States that he was feeling anxious at home feeling hot and sweaty and took a dose of his 's seroquel as well as a dose of his Xanax and aspirin prior to arrival and now having no symptoms. States it feels like a last few times he was in the ER. He is asymptomatic presently. Patient has a blood pressure diary over the last few days and has been having blood pressure readings in the 150s to 160s today. Currently asymptomatic. No chest pain, nausea, vomiting, shortness of breath, abdominal pain, back pain, fever, chills. Related Data Home Medications ?Medication ?Instructions ?Recorded ?Confirmed ?Last Taken ?Type alprazolam 1 mg tablet (Xanax) 1 mg PO HS 04/18/20 07/18/22 12/20/20 History Lactobacillus 1 cap PO DAILY 11/22/20 07/18/22 12/18/20 History acidophilus-Bifidobac.animalis 2.5 billion cell capsule (Daily Probiotic) ascorbate calcium (vitamin C) 500 1,000 mg PO DAILY 11/22/20 07/18/22 12/18/20 History mg tablet cholecalciferol (vitamin D3) 125 125 mcg PO DAILY 11/22/20 07/18/22 12/18/20 History mcg (5,000 unit) tablet (Vitamin D3) vitamin B complex (B 1 tablet PO DAILY 11/22/20 07/18/22 12/18/20 History Complex-Vitamin B12 tablet) escitalopram oxalate 10 mg tablet 10 mg PO DAILY 06/14/22 07/18/22 Unknown History (Lexapro) Allergies Allergy/AdvReac Type Severity Reaction Status Date / Time No Known Allergies Allergy Verified 07/18/22 08:42 Review of Systems Review of Systems: As reviewed above in HPI All systems reviewed & are unremarkable except as noted in HPI and below PMFSH Past Medical History Medical History Ulcerative colitis Syncope and collapse Intermittent palpitations Sciatica Rectal bleeding Sleep apnea uses CPAP at night HTN (hypertension) HLD (hyperlipidemia) Surgical History Surgical History H/O hemorrhoidectomy 11/29/20 Multiple hemorrhoid ligation (Transanal hemorrhoid dearterialization procedure) Family History Family History Father Patient's father is Sibling Hypertension Mother Diabetes mellitus Social History Social History Smoking packs per day: 1 Smoking cigarettes per day: 20.0 Years smoked: 30 Smoking pack-years: 30.00 Smoking status: Former smoker Tobacco type: cigarettes Second hand tobacco smoke exposure: No Smoking end date: 09/05/18 Alcohol intake: current Drinks per week: 6 Substance use: current Substance use type: marijuana Living arrangements: with family Gender identity (if verbalized by the patient): Male Spiritual care concerns: No Exam Narrative: GENERAL: [Well-appearing, well-nourished, and in no acute distress.] HEAD: [Normocephalic, atraumatic.] EYES: [PERRLA and EOMI.] ENT: Nares clear, no rhinorrhea or epistaxis. Mucous membranes moist. NECK: Supple. CHEST: [Clear to auscultation. No respiratory distress.] HEART: [Regular rate and rhythm]. No murmur heard. [Normal peripheral pulses.] ABDOMEN: [Soft, nondistended], [nontender], [No rigidity or guarding] EXTREMITIES: Normal range of motion. [No edema.] SKIN: Warm, dry, no rash. NEURO: [No focal deficits]. Alert and oriented [x3.] PSYCH: [Normal mood and affect.] Course Vital Signs Vital signs: Vital Signs Pulse Rate 76 04/02/25 23:14 Respiratory Rate 19 04/02/25 23:14 Blood Pressure 149/105 H 04/02/25 23:14 Pulse Oximetry 97 04/02/25 23:14 Pulse Rate 76 04/02/25 23:14 Respiratory Rate 19 04/02/25 23:14 Blood Pressure 149/105 H 04/02/25 23:14 Pulse Oximetry 97 04/02/25 23:14 MDM MDM Narrative Medical decision making narrative: 49-year-old male with history of hypertension and ulcerative colitis presenting to the emergency department today with chest heaviness and palpitations as well as elevated blood pressure readings. Patient states he has been to 3 separate ER visits for this over the last week and been told that his blood pressure just needs better control in recently started taking additional dose of his amlodipine from 5 mg to 10 mg 2 days ago. States he had a workup yesterday with a chest x-ray that was normal. States that he was feeling anxious at home feeling hot and sweaty and took a dose of his 's seroquel as well as a dose of his Xanax and aspirin prior to arrival and now having no symptoms. States it feels like a last few times he was in the ER. He is asymptomatic presently. Patient has a blood pressure diary over the last few days and has been having blood pressure readings in the 150s to 160s today. Currently asymptomatic. No chest pain, nausea, vomiting, shortness of breath, abdominal pain, back pain, fever, chills. Patient is overall well-appearing and presently asymptomatic. Blood pressure 149/105. No tachycardia tachypnea or hypoxemia. Benign physical examination. Does sound like it could be anxiety mediated given his symptoms that responded to add Ativan and Seroquel at home but he does have concerns about his blood pressure and heart. Been evaluated several times in different ERs which is also reassuring given that he today he was discharged after his labs imaging serially. Still possible ACS. Will obtain cardiac workup here at this time. EKG obtained showing no acute ST segment changes. Troponin ordered. Patient placed on color television console monitor and re-evaluated. Troponin came back largely elevated. EKG reviewed showing no ST segment changes. Will trend troponin EKG. Re-evaluated patient still asymptomatic. Discussed his elevated troponin and serial ER visits recently that did not find anything but today we have evidence that there is some ongoing cardiac issues needing attention. Started on heparin infusion and will trend his labs. Presently asymptomatic which is reassuring. Will be admitted to the IMU for monitoring and cardiology consult placed. Patient and family updated on plan and agreeable to admission. Discussed with the hospitalist for admission and patient accepted to the IMU at this time. Differential Diagnosis Differential Diagnosis: could be anxiety mediated given his symptoms that responded to add Ativan and Seroquel at home but he does have concerns about his blood pressure and heart. Been evaluated several times in different ERs which is also reassuring given that he today he was discharged after his labs imaging serially. Still possible ACS. Lab Data [facility] Lab Attestation statement: I personally reviewed the patient's lab results. 04/02/25 23:24 04/02/25 23:24 Labs: Lab Results 04/02/25 Range/Units 23:24 WBC 8.6 (4.5-10.0) K/mm3 RBC 4.87 (4.6-6.20) M/mm3 Hgb 15.7 (14.0-18.0) g/dL Hct 45.2 (42.0-52.0) % MCV 92.8 (80-100) fl MCH 32.2 (26-34) pg MCHC 34.7 (32-36) g/dl RDW 12.6 (11.5-14.5) % Plt Count 301 (150-375) k/mm3 MPV 9.2 (7.4-10.4) fl Immature Gran % (Auto) 0.2 (0-0.5) % Neut % (Auto) 59.6 (45.5-73.1) % Lymph % (Auto) 30.5 (18.3-44.2) % Moffat % (Auto) 7.8 (2.6-8.5) % Eos % (Auto) 1.2 (0-4.4) % Baso % (Auto) 0.7 (0.2-1.2) % Lymph # (Auto) 2.62 (0.9-3.2) K/mm3 Moffat # (Auto) 0.7 H (0.1-0.6) K/mm3 Eos # (Auto) 0.1 (0-0.3) K/mm3 Baso # (Auto) 0.1 (0.0-0.1) K/mm3 Abs Immat Gran (auto) 0.02 (0.00-0.031) K/mm3 Absolute Neuts (auto) 5.1 (1.3-6.7) K/mm3 Absolute Nucleated RBC 0.000 (0.0-0.012) K/mm3 Nucleated RBC % 0.0 (0.0-0.2) % PT 13.8 (11.1-14.7) Seconds INR 1.1 APTT 23.8 (22.3-36.8) Seconds Sodium 137 (137-145) mmol/L Potassium 3.8 (3.4-5.0) mmol/L Chloride 107 (98-107) mmol/L Carbon Dioxide 24 (22-30) mmol/L Anion Gap 6 (4-12) mmol/L BUN 21 H (9-20) mg/dL Creatinine 1.00 (0.7-1.3) mg/dL Estim Creat Clear Calc 83 ml/min Estimated GFR > 60 (59 - ) Glucose 121 H (65-110) mg/dL Calcium 9.4 (8.4-10.2) mg/dL Total Bilirubin 0.5 (0.2-1.3) mg/dL AST 28 (17-59) U/L ALT 19 (6-50) U/L Alkaline Phosphatase 68 (38-126) U/L Troponin I 0.097 H* (0.000-0.034) ng/mL Total Protein 7.6 (6.3-8.2) g/dL Albumin 4.3 (3.5-5.1) g/dL Lipase 108 (23-300) U/L Imaging Data Attestation: I personally reviewed and interpreted this imaging study as follows: My impression: No obvious consolidation or pneumonia. No pneumothorax Critical Care Time Critical Care Time Critical Care Time: Yes Time Type: Intermittent Initial evaluation, discuss w/ involved parties, attempting to gather old records: 10 minutes Documenting medical record: 5 minutes Review of results (EKG's, labs, imaging): 5 minutes Serial repeat bedside evaluation: 10 minutes Discussing case with multiple memebers of the care team and consultants: 5 minutes Total Critical Care Time: 35 Discharge Plan Discharge Clinical Impression: Chest pain, Non-ST elevation CT (NSTEMI) Patient Disposition: Still a Patient Condition: Stable Patient Language: Khmer Prescriptions: No Action alprazolam [Xanax] 1 mg tablet 1 mg PO HS escitalopram oxalate [Lexapro] 10 mg tablet 10 mg PO DAILY ascorbate calcium (vitamin C) 500 mg Tablet 1,000 mg PO DAILY vitamin B complex [B Complex-Vitamin B12] Tablet 1 tablet PO DAILY cholecalciferol (vitamin D3) [Vitamin D3] 125 mcg (5,000 unit) Tablet 125 mcg PO DAILY Daily Probiotic 2.5 billion cell Capsule 1 cap PO DAILY mesalamine 500 mg capsule, extended release 1,000 mg PO BID 30 Days Qty: 120 2RF Follow-up/Referrals: Alexi Howell MD [Primary Care Provider, Family Practice] Time of Disposition: 00:15
[2025-04-02 23:14] VITALS: BP 149/105; PULSE 76; RESP 19; O2SAT 97
[2025-04-02 23:16] VITALS: BP 146/91; PULSE 82; RESP 14; O2SAT 96
--- OUTSIDE RECORDS SUMMARY | 2025-04-02 23:19 | XMS_ITS | Clinical Summary ---
Author Organization [facility] Address [address] [place] [address] Care Team Providers Care Data Warehouse Manager Name Role Phone Unavailable Primary Care Provider Unavailabl e Source Comments [facility],non-owned Affiliates and Associated Physician Practices is amultiple site organization consisting of ambulatory clinics and hospital sitesin [place], [place]. This disclosure is being madepursuant to the Care Everywhere program and may not contain all information available regarding this patient. 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 STATISTICS Gender Identity Not on file Sexual Orientation Not on file Last Filed Vital Signs Vital Sign Reading Time Taken Comments Blood Pressure 128/90 08/16/2012 9:42 PM CDT Pulse 76 08/16/2012 9:42 PM CDT Temperature 36.9 C (98.4 F) 08/16/2012 9:42 PM CDT Respiratory Rate 20 08/16/2012 9:42 PM CDT Oxygen Saturation 100% 08/16/2012 9:42 PM CDT Inhaled Oxygen Concentration - - Weight 72.6 kg (160 lb) 08/16/2012 9:42 PM CDT Height 180.3 cm (5' 11) 08/16/2012 9:42 PM CDT Body Mass Index 22.32 08/16/2012 9:42 PM CDT Plan of Treatment Health Maintenance Due Date Last Done Comments COLOGUARD (AGES 45-75) - COL ON CA SCREENING 1974 COLON MONITORING 1974 COLONOSCOPY - COLON CA SCREENING 1974 CT COLONOGRAPHY - COLON CA SCREENING 1974 Colorectal Cancer Screening 1974 FIT - COLON CA SCREENING 1974 FLEX SIG - COLON CA SCREENING 1974 LIPID TESTING 1974 HIV SCREENING 1989 HEPATITIS C SCREENING 08/15/1992 DTAP/TDAP/TD VACCINES (1 - Tdap) 1993 HEPATITIS B VACCINE (1 of 3 - 19+ 3-dose series) 1993 DEPRESSION SCREENING 04/07/2024 PNEUMOCOCCAL VACCINE 50+ (1 of 1 - PCV) 2024 ZOSTER VACCINE (1 of 2) 2024 COVID-19 VACCINE (1 - 2024-2 6 season) 2024 INFLUENZA VACCINE (#1) 2024 HIB VACCINE Aged Out No longer eligi ble based on patient's age to complete this topic HPV VACCINE Aged Out No longer eligi ble based on patient's age to complete this topic MENINGOCOCCAL (Group B) VACC INE SHARED DECISION-MAKING Aged Out No longer eligibl e based on patient's age to complete this topic MENINGOCOCCAL GROUPS A/C/Y/W VACCINE Aged Out No longer eligible b ased on patient's age to complete this topic
--- OUTSIDE RECORDS SUMMARY | 2025-04-02 23:19 | XMS_ITS | Clinical Summary ---
Author Organization [facility] Address [facility] [place] [address] Care Team Providers Care Mortgage Coordinator Name Role Phone Miscellaneous, Not In File Primary Care Provider Unavailable Allergies No known active allergies Medications ALPRAZolam (XANAX) 1 mg tablet Take 1 mg by mouth nightly 1 Active ibuprofen (ADVIL,MOTRIN) 600 mg tablet Take 1 tablet (600 mg total) by mouth every 6 (six) hours as needed for pain 30 tablet 1 Active lidocaine (GLYDO) 2 % jelly in applicator Apply 1 mL (20 mg total) topically 2 (two) times a day 11 mL 1 1 Active rosuvastatin (CRESTOR) 20 mg tablet Take 20 mg by mouth daily Active oxyCODONE-aceta minophen (PERCOCET) 5-325 mg per tablet Take 1 tablet by mouth 4 (four) times a day as needed 1 Active mesalamine (Lialda) 1.2 gram EC tabletIndicatio ns:Ulcerative Colitis Take 4 tablets (4.8 g total) by mouth daily with breakfast 120 tablet 2 Active Active Problems Problem Noted Date Diagnosed Date Rectal bleeding 02/07/2021 Overview (02/07/2021): Added automatically from request for surgery [id number] Proctitis 01/30/2021 Surgical History Surgery Date Site/Laterality Comments EXCISIONAL HEMORRHOIDECTOMY Medical History Medical History Date Comments MELYSSA (obstructive sleep apnea) Dyslipidemia Hyperlipidemia Family History Medical History Relation Name Comments Gunshot wound Father Breast cancer Mother Lung cancer Mother Relation Name Status Comments Father Mother Social History Tobacco Use Types Packs/Day Years Used Date Smoking Tobacco: Former Cigarettes Q uit: 2019 Smokeless Tobacco: Never AUDIT-C Answer Date Recorded Q1: How often do you have a drink containing alc ohol? Monthly or less 03/12/2021 Q2: How many drinks containi ng alcohol do you have on a typical day when you are drinking? 1 or 2 03/12/2021 Q3: How often do you have si x or more drinks on one occasion? 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 Gender Identity Not on file Sexual Orientation Not on file Last Filed Vital Signs Vital Sign Reading Time Taken Comments Blood Pressure 117/82 03/12/2021 3:47 PM BANQUET HOUSEPERSON Pulse 67 03/12/2021 3:47 PM BANQUET HOUSEPERSON Temperature 36.5 C (97.7 F) 03/12/2021 1:02 PM BANQUET HOUSEPERSON Respiratory Rate 14 03/12/2021 3:47 PM BANQUET HOUSEPERSON Oxygen Saturation 99% 03/12/2021 3:47 PM BANQUET HOUSEPERSON Inhaled Oxygen Concentration - - Weight 87.1 kg (192 lb) 03/12/2021 1:02 PM BANQUET HOUSEPERSON Height 180.3 cm (5' 11) 03/12/2021 1:02 PM BANQUET HOUSEPERSON Body Mass Index 26.78 03/12/2021 1:02 PM BANQUET HOUSEPERSON Plan of Treatment Not on file Insurance [facility] Advance Directives For more information, please contact: [phone] * Full Code (Latest Code Status on File) Date Activated Date Inactivated Comments 03/12/2021 12:51 PM 03/12/2021 8:28 PM Care Teams Mortgage Coordinator Relationship Specialty Start Date End Date Miscellaneous, Not In File PCP - General 12/27/16
--- OUTSIDE RECORDS SUMMARY | 2025-04-02 23:19 | XMS_ITS | Clinical Summary ---
Author Organization [facility] Address [address] [place] [address] Phone Care Team Providers Care Actuary Clerk Name Role Phone Alexi Howell Primary Care Provider [phone] Oscar Toure MD Unavailable Allergies No known active allergies Medications amLODIPine (NORVASC) 5 MG Tablet Take 5 mg by mouth daily. 07/01/2022 Active rosuvastatin (CRESTOR) 10 MG Tablet Take 10 mg by mouth daily. 07/01/2022 Active escitalopram (LEXAPRO) 20 MG Tablet Take 20 mg by mouth daily. 07/02/2022 Active ALPRAZolam (XANAX) 1 MG Tablet Take 1 mg by mouth. 12/18/2020 Active budesonide (ENTOCORT EC) [address] Particles 07/18/2022 Active Mesalamine 500 MG Capsule CR TAKE 2 CAPSULES BY MOUTH TWICE DAILY 07/25/2022 Active Active Problems Problem Noted Date Diagnosed Date Anxiety 08/05/2022 UC (ulcerative colitis) 08/05/2022 HTN (hypertension) 08/05/2022 Iron deficiency 08/05/2022 Family History Medical History Relation Name Comments Hypertension Brother Diabetes Mother Relation Name Status Comments Brother Mother Social History Tobacco Use Types Packs/Day Years Used Date Smoking Tobacco: Never Smokeless Tobacco: Never Alcohol Use Standard Drinks/Week Comments Yes 0 (1 standard drink = 0.6 oz pur e alcohol) rarely Sex and Gender Information Value Date Recorded Sex Assigned at Not on file Legal Sex Male 9:24 AM CDT Gender Identity Not on file Sexual Orientation Not on file Last Filed Vital Signs Vital Sign Reading Time Taken Comments Blood Pressure 126/82 01/06/2023 9:17 AM CDT Pulse 68 01/06/2023 9:17 AM CDT Temperature 36.8 C (98.2 F) 01/06/2023 9:17 AM CDT Respiratory Rate 18 01/06/2023 9:17 AM CDT Oxygen Saturation 97% 01/06/2023 9:17 AM CDT Inhaled Oxygen Concentration - - Weight 88.5 kg (195 lb 3.2 oz) 01/06/2023 9:17 A M CDT Height 180.3 cm (5' 11) 01/06/2023 9:17 AM CDT Body Mass Index 27.22 01/06/2023 9:17 AM CDT Plan of Treatment Health Maintenance Due Date Last Done Comments Hepatitis C Virus (HCV) Screening 1974 TdaP Immunization 1974 Hepatitis B Immunization (1 of 3 - 19+ 3-dose series) 1993 Cologuard 08/21/2019 Colonoscopy 08/21/2019 Colorectal Cancer Screening 08/21/2019 Immunochemical Fecal Occult Blood 08/21/2019 Pneumococcal Immunization (5 0+ years) (1 of 1 - PCV) 2024 Zoster Immunization (1 of 2) 2024 Influenza Immunization (#1) 2024 SARS-COV-2 Immunization (1 - 2024- season) 2024 Respiratory Syncytial Virus (RSV) Immunization (Adult) (1 - 1-dose 75+ series) 2049 Human Papillomavirus (HPV) Immunization (No Doses Required) Completed Meningococcal Immunization (ACWY) Aged Out No longer eligible based on patient's age to complete this topic Rotavirus Immunization Aged Out No lo nger eligible based on patient's age to complete this topic Care Teams Actuary Clerk Relationship Specialty Start Date End Date Dante Alexi [address] [place] [address] PCP - General Family Medicine 07/08/22 Oscar Toure MD [address] [place] [address] Consulting Physician Oncology 08/08/22
--- OUTSIDE RECORDS SUMMARY | 2025-04-02 23:19 | XMS_ITS | Encounter Summary ---
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
--- OUTSIDE RECORDS SUMMARY | 2025-04-02 23:19 | XMS_ITS | Clinical Summary ---
Author Organization [facility] Address [address] [place] [address] Care Team Providers Care Software Support Engineer Name Role Phone Alexi Howell MD Primary Care Provider [phone] Allergies No known active allergies Medications ALPRAZolam (XANAX) 1 MG tablet Take 1 tablet (1 mg total) by mouth nightly as needed. at bedtime 3 Active escitalopram (LEXAPRO) 10 MG tablet Take 1 tablet (10 mg total) by mouth daily. 3 Active amLODIPine (NORVASC) 10 MG tablet Take 1 tablet (10 mg total) by mouth daily. 30 tablet 5 Active amLODIPine (NORVASC) 5 MG tablet Take 1 tablet (5 mg total) by mouth daily. 3 03/27/20 25 Discontinu ed(Dose adjustment ) Encounters Date Type Department Care Team Description 04/01/2025 11:15 AM [facility] - 04/01/2025 12:10 PM [facility] Emergency [facility] [place] [address] Christo Juarez DO Hypertension Discharge Disposition: Home or Self Care (Routine Discharge) 04/01/2025 Travel 03/26/2025 11:57 PM WATER TESTER - 03/27/2025 1:58 AM [facility] Emergency [facility] [place] [address] Hudson Curtis MD,PHD Hypertension Discharge Disposition: Home or Self Care (Routine Discharge) 03/26/2025 Travel from Last 3 Months Social History Tobacco Use Types Packs/Day Years [...] 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 Not on file Not on file Not on file Last Filed Vital Signs Vital Sign Reading Time Taken Comments Blood Pressure 178/98 04/01/2025 10:47 AM WATER TESTER Pulse 77 04/01/2025 10:47 AM WATER TESTER Temperature 36.7 C (98 F) 04/01/2025 10:47 AM WATER TESTER Respiratory Rate 18 04/01/2025 10:47 AM WATER TESTER Oxygen Saturation 99% 04/01/2025 10:47 AM WATER TESTER Inhaled Oxygen Concentration - - Weight 88.5 kg (195 lb 1.7 oz) 04/01/2025 10:47 AM WATER TESTER Height 180.3 cm (5' 11) 04/01/2025 10:47 AM WATER TESTER Body Mass Index 27.21 04/01/2025 10:47 AM WATER TESTER Plan of Treatment Health Maintenance Due Date Last Done Comments Colorectal Cancer Screening Colonoscopy (10 Years) 1974 Annual Physical 1977 Hepatitis C 1992 DTaP, Tdap and Td Vaccines ( 1 - Tdap) 1993 Hepatitis B Vaccines (1 of 3 - 19+ 3-dose series) 1993 Pneumococcal Vaccine: 50+ Ye ars (1 of 1 - PCV) 2024 Zoster Vaccines (1 of 2) 2024 COVID-19 Vaccine ( - 2024-2 6 season) 2024 Influenza Adult (#1) 2025 Hepatitis A Vaccines Aged Out No long er eligible based on patient's age to complete this topic Meningococcal B Vaccine Aged Out No l onger eligible based on patient's age to complete this topic Meningococcal Vaccine Aged Out No manisha sara eligible based on patient's age to complete this topic RSV Immunizations Under 20 Months Aged Out No longer eligible based on patient's age to complete this topic Procedures Procedure Name Priority Date/Time Associated Diagnosis Comments ELECTROCARDIOGRAM REPORT Routine 025 11:28 PM WATER TESTER XR CHEST PORTABLE STAT 04/01/2025 11: 20 AM WATER TESTER XR CHEST PORTABLE STAT 03/27/2025 12: 13 AM WATER TESTER MAGNESIUM STAT 03/26/2025 11:55 PM WATER TESTER TROPONIN, QUANT STAT 03/26/2025 11:55 PM WATER TESTER COMPREHENSIVE METABOLIC PANEL STAT 03/26/2025 11:55 PM WATER TESTER HC CBC AUTO W/AUTO DIFF STAT 03/26/20 11:55 PM WATER TESTER ECG 12-LEAD STAT 03/26/2025 11:38 PM WATER TESTER from Last 3 Months Results * EKG Reading (04/01/2025 11:28 PM WATER TESTER) Christo Carmichael DO - 04/01/2025 11:28 PM WATER TESTER Christo Juarez DO 04/01/2025 10:18 PM EKG Reading Date/Time: 04/01/2025 11:28 PM Performed by: Christo Juarez DO Authorized by: Christo Juarez DO Interpreted by ED physician Rhythm: sinus rhythm Rate: normal BPM: 63 QRS axis: normal Conduction: incomplete RBBB ST Segments: ST segments normal Clinical impression: abnormal ECG Comments: Nonspecific T wave changes. Christo Juarez DO [facility] Final Result * XR CHEST PORTABLE (04/01/2025 11:20 AM WATER TESTER) Only the most recent of2 resultswithin the time period is included. Anatomical Region Laterality Modality Chest Radiographic Debi ging 04/01/2025 11:2 4 AM WATER TESTER Impressions 04/01/2025 11:25 AM WATER TESTER IMPRESSION:===== No acute findings. Referred By: Interpreted By: Dany Allen MD, 04/01/2025 11:24 AM Narrative 04/01/2025 11:25 AM WATER TESTER [facility] [address] [place] [address] EXAMINATION: CHEST RADIOGRAPH SINGLE VIEW Exam date/time: 04/01/2025 10:49 AM Reason For Exam: hypertensive urgency Comparison: March 27, 2025 Technique: Upright AP view of the chest Findings: Heart size normal. Proximal airways unremarkable. No suspicious pulmonary lesion, pneumothorax, or pleural effusion. ===== Procedure Note Dany Allen MD - 04/01/2025 [place] [address] EXAMINATION: CHEST RADIOGRAPH SINGLE VIEW Exam date/time: 04/01/2025 10:49 AM Reason For Exam: hypertensive urgency Comparison: March 27, 2025 Technique: Upright AP view of the chest Findings: Heart size normal. Proximal airways unremarkable. No suspiciouspulmonary lesion, pneumothorax, or pleural effusion. ===== IMPRESSION:===== No acute findings. Referred By: Interpreted By: Dany Allen MD, 04/01/2025 11:24 AM Chetan Chisholm NP GENERAL IMAGING Final Result * TROPONIN, QUANT (03/26/2025 11:55 PM WATER TESTER) TROPONIN I HIGH SENSITIVITY 17 <79 ng/L 03/27/2025 12:44 AM WATER TESTER [facility] Comment: HIGH DOSES OF BIOTIN, TROPONIN-SPECIFIC AUTOANTIBODIES, AND ANTIBODY THERAPY CONTAINING HAMA MAY INTERFERE WITH THIS TEST RESULT. CORRELATION TO CLINICAL HISTORY AND PRESENTATION RECOMMENDED. BLOOD VENOUS BLOOD SPECIMEN / Unknown 03/26/2025 11:55 PM WATER TESTER [facility] Final Result [facility] [address] [place] [address], [place] [phone] * MAGNESIUM (03/26/2025 11:55 PM WATER TESTER) MAGNESIUM 2.2 1.8 - 2.4 MG/DL 03/27/2025 12:44 AM WATER TESTER [facility] BLOOD VENOUS BLOOD SPECIMEN / Unknown 03/26/2025 11:55 PM WATER TESTER [facility] Final Result Performing Organization Address [facility]/ZIP Co de Phone Number [facility] [address] [place] [address], [place] [phone] * (ABNORMAL) COMPREHENSIVE METABOLIC PANEL (03/26/2025 11:55 PM WATER TESTER) GLUCOSE 126(H) 70 - 99 MG/DL 03/27/2025 12:44 AM WATER TESTER [facility] BUN 16 7 - 18 MG/DL 03/27/2025 12:44 AM WATER TESTER [facility] CREATININE S/P/B 1.14 0.7 - 1.3 MG/DL 03/27/2025 12:44 AM WATER TESTER [facility] SODIUM S/P/B 141 136 - 145 MMOL/L 03/27/2025 12:44 AM WATER TESTER [facility] POTASSIUM S/P/B 3.8 3.5 - 5.1 MMOL/L 03/27/2025 12:44 AM [facility] CHLORIDE S/P/B 109 97 - 115 MMOL/L 03/27/2025 12:44 AM [facility] CO2 27.7 21 - 32 MMOL/L 03/27/2025 12:44 AM [facility] CALCIUM S/P/B 9.5 8.5 - 10.1 MG/DL 03/27/2025 12:44 AM [facility] BILIRUBIN TOTAL S/P/B 0.3 0.2 - 1.2 MG/DL 03/27/2025 12:44 AM [facility] Comment: THIS ASSAY IS NOT RECOMMENDED FOR PATIENTS UNDERGOING TREATMENT WITH ELTROMBOPAG DUE TO THE POTENTIAL FOR FALSELY ELEVATED RESULTS. TOTAL PROTEIN S/P/B 7.5 6.4 - 8.2 G/DL 03/27/2025 12:44 AM [facility] ALBUMIN S/P/B 4.0 3.4 - 5.0 G/DL 03/27/2025 12:44 AM [facility] AST 15 15 - 37 U/L 03/27/2025 12:44 AM [facility] ALT 23 16 - 60 U/L 03/27/2025 12:44 AM [facility] ALKALINE PHOSPHATASE S/P/B 60 50 - 136 U/L 03/27/2025 12:44 AM [facility] ANION GAP 4.3 2 - 10 MMOL/L 03/27/2025 12:44 AM [facility] BUN CREATININE RATIO 14.0 6 - 26 03/27/2025 12:44 AM [facility] A/G RATIO 1.1 1.0 - 2.0 RATIO 03/27/2025 12:44 AM [facility] GFR ESTIMATE 78(L) >90 ML/MIN/1.7 3 M2 03/27/2025 12:44 AM [facility] Comment: NOTE: eGFR is not calculated for patients <18 years of age or gender unknown. This is an estimated GFR calculation using the new CKD EPI creatinine equation without race and so does not require a correction factor for race. This estimated GFR should not be used for calculating drug doses. BLOOD VENOUS BLOOD SPECIMEN / Unknown 03/26/2025 11:55 PM WATER TESTER [facility] Final Result [facility] [address] [place] [address], * (ABNORMAL) CBC W/DIFF AUTOMATED (03/26/2025 11:55 PM WATER TESTER) WBC 7.43 4.5 - 11.0 x10'3/uL 03/27/2025 12:36 AM [facility] RBC 4.56(L) 4.70 - 6.10 x10'6/uL 03/27/2025 12:36 AM WATER TESTER [facility] HGB 14.8 14.0 - 18.0 G/DL 03/27/2025 12:36 AM [facility] HCT 42.1(L) 43.0 - 54.0 % 03/27/2025 12:36 AM [facility] MCV 92.3 80.0 - 94.0 FL 03/27/2025 12:36 AM WATER TESTER [facility] MCH 32.5(H) 27.0 - 31.0 PG 03/27/2025 12:36 AM WATER TESTER [facility] MCHC 35.2 32.0 - 36.0 G/DL 03/27/2025 12:36 AM [facility] RDW 13.1 11.5 - 14.5 % 03/27/2025 12:36 AM [facility] PLT 355 130 - 400 x10'3/uL 03/27/2025 12:36 AM [facility] MPV 9.5 9.3 - 12.2 FL 03/27/2025 12:36 AM [facility] DIFFERENTIAL TYPE AUTOMATED DIFFERENTIAL 03/27/2025 12:36 AM [facility] NEUTROPHILS % 43.9 % 03/27/2025 12:36 AM [facility] LYMPHOCYTES % 42.8 % 03/27/2025 12:36 AM [facility] MONOCYTES % 10.2 % 03/27/2025 12:36 AM [facility] EOSINOPHILS 1.9 % 03/27/2025 12:36 AM [facility] BASOPHILS 0.9 % 03/27/2025 12:36 AM [facility] IMMATURE GRANS % 0.3 % 03/27/20 12:36 AM [facility] ABS. NEUTROPHILS 3.26 1.80 - 7.70 x10'3/uL 03/27/2025 12:36 AM [facility] ABS. LYMPHOCYTES 3.18 1.00 - 4.80 x10'3/uL 03/27/2025 12:36 AM [facility] ABS. MONOCYTES 0.76 0.30 - 0.82 x10'3/uL 03/27/2025 12:36 AM [facility] ABS. EOSINOPHILS 0.14 0.04 - 0.54 x10'3/uL 03/27/2025 12:36 AM [facility] ABS. BASOPHILS 0.07 0.01 - 0.08 x10'3/uL 03/27/2025 12:36 AM [facility] ABS. IMMATURE GRANULOCYTES 0.02 0.00 - 0.49 x10'3/uL 03/27/2025 12:36 AM [facility] BLOOD VENOUS BLOOD SPECIMEN / Unknown 03/26/2025 11:55 PM WATER TESTER [facility] Final Result 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1975 Requested By: AUDRA FERRIS Order Number: [id number] Reading MD: Parmjit Thomas Measurements Intervals [place] Rate: 63 P: 8 NV: 168 QRS: 25 QRSD: 102 T: 30 QT: 376 QTc: 385 Interpretive Statements SINUS RHYTHM POSSIBLE LEFT ATRIAL ENLARGEMENT [-0.1mV P-WAVE IN V1/V2] INCOMPLETE RIGHT BUNDLE BRANCH BLOCK [90+ ms QRS DURATION, TERMINAL R IN V1/V2, 40+ ms S IN I/aVL/V4/V5/V6] R TESTER Procedure Note Parmjit Thomas MD - 03/28/2025 [facility] [address] Test Date: 2025-03-26 Pat Name: CASH WILLIAMSON Department: 41 Room: Gender: Male 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: [id number] : 1975 Requested By: AUDRA FERRIS Order Number: [id number] Reading MD: Parmjit Thomas Measurements Intervals [place] Rate: 63 P: 8 NV: 168 QRS: 25 QRSD: 102 T: 30 QT: 376 QTc: 385 Interpretive Statements SINUS RHYTHM POSSIBLE LEFT ATRIAL ENLARGEMENT [-0.1mV P-WAVE IN V1/V2] INCOMPLETE RIGHT BUNDLE BRANCH BLOCK [90+ ms QRS DURATION, TERMINAL RIN V1/V2, 40+ ms S IN I/aVL/V4/V5/V6] R TESTER us Audra Ferris PA ECG ORDERABLES Final Result [facility] RAD from Last 3 Months Care Teams Software Support Engineer Relationship Specialty Start Date End Date Alexi Howell MD [address] [place] [address] PCP - General FAMILY PRACTICE 06/07/22
[2025-04-02 23:31] LABS: Hematocrit 45.2 % (42.0-52.0); Hemoglobin 15.7 g/dL (14.0-18.0); Immature Granulocyte Percent A 0.2 % (0-0.5); Lymphocytes Absolute Auto 2.62 K/mm3 (0.9-3.2); Mean Corpuscular HGB Conc 34.7 g/dl (32-36); Mean Corpuscular Hemoglobin 32.2 pg (26-34); Mean Corpuscular Volume 92.8 fl (80-100); Nucleated Red Blood Cells Absolute Auto 0.000 K/mm3 (0.0-0.012); Nucleated Red Blood Cells Perc 0.0 % (0.0-0.2); Platelet Count Result 301 k/mm3 (150-375); Red Blood Count 4.87 M/mm3 (4.6-6.20); White Blood Count 8.6 K/mm3 (4.5-10.0)
[2025-04-02 23:43] LABS: Alanine Aminotransferase 19 U/L (6-50); Albumin Level 4.3 g/dL (3.5-5.1); Alkaline Phosphatase 68 U/L (38-126); Anion Gap 6 mmol/L (4-12); Aspartate Amino Transferase 28 U/L (17-59); Bilirubin,Total 0.5 mg/dL (0.2-1.3); Blood Urea Nitrogen 21 mg/dL (9-20); Calcium 9.4 mg/dL (8.4-10.2); Carbon Dioxide 24 mmol/L (22-30); Chloride 107 mmol/L (98-107); Estimated CRCL calculation 83 ml/min; Estimated Glomerular Filt Rate > 60; Glucose 121 mg/dL (65-110); Lipase 108 U/L (23-300); Potassium 3.8 mmol/L (3.4-5.0); Sodium 137 mmol/L (137-145); Total Protein 7.6 g/dL (6.3-8.2)
[2025-04-02 23:44] LABS: INR 1.1; Prothrombin Time 13.8 Seconds (11.1-14.7)
[2025-04-02 23:45] LABS: Partial Thromboplastin Time 23.8 Seconds (22.3-36.8)
[2025-04-02 23:56] LABS: Troponin I 0.097 ng/mL (0.000-0.034)
[2025-04-03] VITALS (16 sets, daily range): BP systolic 124–158; BP diastolic 77–93; PULSE 59–82; RESP 15–22; TEMP 36.5–36.8; O2SAT 96–100; BMI 27.0
[2025-04-03 00:32] LABS: Hematocrit 43.3 % (42.0-52.0); Hemoglobin 15.1 g/dL (14.0-18.0); Immature Granulocyte Percent A 0.3 % (0-0.5); Lymphocytes Absolute Auto 2.58 K/mm3 (0.9-3.2); Mean Corpuscular HGB Conc 34.9 g/dl (32-36); Mean Corpuscular Hemoglobin 32.5 pg (26-34); Mean Corpuscular Volume 93.1 fl (80-100); Nucleated Red Blood Cells Absolute Auto 0.000 K/mm3 (0.0-0.012); Nucleated Red Blood Cells Perc 0.0 % (0.0-0.2); Platelet Count Result 305 k/mm3 (150-375); Red Blood Count 4.65 M/mm3 (4.6-6.20); White Blood Count 10.4 K/mm3 (4.5-10.0)
[2025-04-03] MEDS: HEPARIN SOD/D5W 100 UNITS/ML 25,000 UNITS/250 ML BAG 10 UNITS IV CONT (00:40)
[2025-04-03 00:45] LABS: INR 1.1; Prothrombin Time 14.0 Seconds (11.1-14.7)
[2025-04-03 00:46] LABS: Partial Thromboplastin Time 24.1 Seconds (22.3-36.8)
[2025-04-03 01:08] LABS: Influenza A QL RT-PCR Negative (Negative); Influenza B QL RT-PCR Negative (Negative); RSV RNA, RT-PCR Negative (Negative); SARS-CoV-2 RNA PCR Negative (Negative)
--- NOTE | 2025-04-03 01:41 | WPCEDHO ---
ED Hand Off Checklist All vitals saved:Yes IV Site documented:Yes All med administrations documented:Yes Triage Note Triage Note Pt to ED via POV. Pt states he is 04/02/25 22:42 having palpitations, chest heaviness, and HTN. Pt states he has been to the hospital 3x recently. Pt states he was recently diagnosed with HTN. Pt states he does take blood pressure medication and has been compliant with his meds. Pt denies any other medical hx at this time. Pt is A&Ox4 and ambulatory to intake desk. Pt states he took xanax and low dose aspirin [employer]PER[employer]. Pt has a hx of anxiety. Pt states he feels hot. Allergies No Known Allergies Allergy (Verified 07/18/22 08:42) Family History (Last Reviewed 04/02/25 @ 23:17 by Delano Kennedy MD) Father Patient's father is Sibling Hypertension Mother Diabetes mellitus Active Medications including assessments/comments Heparin Sodium/Dextrose (Heparin Sodium/D5w 100 Units/Ml) 25,000 units in 250 mls @ 10 mls/hr IV CONT .Q24H SIMONA; Protocol Last Admin: 04/03/25 00:40 Dose: 1,000 units/hr, 10 mls/hr Documented By: MELA Co-signed By: RADHA Infusion/Titration Document 04/03/25 00:40 MELA (Rec: 04/03/25 00:41 MELA [id number]) Co-signed By Mahi Bellamy RN Intake IV Site Peripheral Access Left Antecubital Container Volume 250 Waste Amount 0 Dosing Dose Rate 1,000 Infusion Rate 10 Increase/Decrease Started Elapsed Time Elapsed Time ( 0m minutes) Heparin Infusion Assessment Document 04/03/25 00:40 MELA (Rec: 04/03/25 00:41 MELA [id number]) Co-signed By Mahi Bellamy RN Heparin Infusion Assessment Heparin Infusion Initiated Action Administered/Completed Medications Discontinued Medications Heparin Sodium (Porcine) (Heparin Sodium 5,000 Units/Ml Vial) 4,000 units IV PUSH ONCE ONE Stop: 04/03/25 00:05 Last Admin: 04/03/25 00:40 Dose: 4,000 units Documented By: MELA Co-signed By: RADHA Interventions/Assessments IV / Saline Lock, Insert Start: 04/02/25 23:09 Freq: STAT Status: Active Protocol: Document 04/02/25 23:27 KRPark (Rec: 04/02/25 23:27 KRZ [id number]) IV Assessment Peripheral Access Left Antecubital IV Catheter Access Initiated IV Insertion Date 04/02/25 IV Insertion Time 23:27 Catheter Gauge 20 IV Insertion 1 Attempts Ultrasound Used for No Placement IV Site Assessment WNL IV Care and WNL Maintenance PA: Cardiovascular Assessment Start: 04/02/25 22:41 Freq: Status: Active Protocol: Document 04/02/25 23:14 MELA (Rec: 04/02/25 23:14 [email or web address] [id number]) Cardiovascular Assessment Cardiovascular Chest Pressure,Dyspnea Symptoms Skin Description Normal Color Heart Sounds Normal Chest Pain Assessment Chest Pain Intensity 0 Last Vital Signs Pulse Rate 79 04/03/25 01:39 Respiratory Rate 16 04/03/25 01:39 Pulse Oximetry 97 04/03/25 01:39 Blood Pressure 141/93 H 04/03/25 01:39 Blood Pressure Mean 109 04/03/25 01:39 Weight 88.6 kg 04/02/25 22:42 Last Result - Abnormals Only WBC 10.4 K/mm3 (4.5-10.0) H 04/03/25 00:27 [place] # (Auto) 0.8 K/mm3 (0.1-0.6) H 04/03/25 00:27 Absolute Neuts (auto) 6.9 K/mm3 (1.3-6.7) H 04/03/25 00:27 BUN 21 mg/dL (9-20) H 04/02/25 23:24 Glucose 121 mg/dL (65-110) H 04/02/25 23:24 Troponin I 0.097 ng/mL (0.000-0.034) H* 04/02/25 23:24 Most Recent Suicide Severity Rating Suicide Severity Rating NO RISK INDICATED 04/02/25 22:42
--- NOTE | 2025-04-03 02:11 | ADMGEN ---
This patient, Cash Callejas, was admitted to IMU Room 205-01. Patient/family oriented to hospital policies and general routines including ID bracelet, bed and alarms, visiting hours, pain management, procedures, bathroom and other care routines, personal items, smoking policy, room service/diet, and visiting hours. Information on how to activate the Rapid Response Team has been discussed. Patient/Family are encouraged to report perceived risks to care and to ask questions if they do not understand what they are told or what they should do.
--- NOTE | 2025-04-03 03:48 | PM.IMHP2 ---
H&P: HPI History of Present Illness Date/Time: 04/03/25 03:48 Chief Complaint: Palpitations with hypertension, and chest heaviness. Narrative: This is a 49-year-old male patient who has a history of hypertension and ulcerative colitis. The patient stated that he has been to [facility] 2 times in the past week. He noticed that his blood pressure was elevated even though he has been taking his home medications as prescribed. The patient stated that the 1st time he went to [facility] he received some IV medications which brought his blood pressure down and his amlodipine was increased from 5 mg to 10 mg. The patient stated that he was changing his diet it and took the increased medications, he was feeling well for approximately 2 days. That he noticed that he was not feeling well again therefore he went back to [facility]. The 2nd time that he went to [facility] he was told to monitor his blood pressure 3 times a day and follow up with his primary care doctor. He stated that he was told not to come back to the emergency room issues having some chest pressure. The patient stated that he attempted to go to work and became short of breath with exertion. He had to stop working and rest before he could continue working. Patient stated he has been feeling more anxious at home and was more diaphoretic. He he stated that he took a dose of his 's Seroquel as well as a dose of Xanax an aspirin prior to arrival in the emergency room here. He stated that his systolic blood pressures been running 150s 160s. Patient was asymptomatic when he arrived to the emergency room. Troponin is 0.097 and 0.112. Chest x-ray was taken but not read by radiologist. The patient was started on heparin drip. As per ED provider, EKG obtained showing no acute ST segment changes. Per my view, chest x-ray shows nothing acute. Highest blood pressure was 146/91. Is currently 140/80. Safety Director has been consulted per ED provider. Influenza a, influenza B, RSV and COVID are all negative. Patient is being admitted to observation status on the date of service of 04/03/2025 Review of Systems Constitutional: Constitutional: Reports as per HPI and Reports no additional constitutional complaints Eyes: Eyes: Reports as per HPI and Reports no additional eye complaints ENT: Reports system reviewed and no additional complaints, except as documented and Reports Normal hearing present Cardiovascular: Cardiovascular: Reports no additional cardiovascular complaints Respiratory: Respiratory: Reports as per HPI and Reports no additional respiratory complaints Gastrointestinal: Gastrointestinal: Reports as per HPI and Reports no additional gastrointestinal complaints Musculoskeletal: Musculoskeletal: Reports no additional musculoskeletal complaints Integumentary/Breasts: Skin/Breast: Reports system reviewed and no additional complaints, except as docu Neurologic: Reports system reviewed and no additional complaints, except as documented and Reports Normal hearing present Psychiatric: Psychiatric: Reports no additional psychiatric complaints and Reports as per HPI Hematologic/Lymphatic: Hematologic/Lymphatic: Reports no additional hematologic/lymphatic complaints Allergic/Immunologic: Allergic/Immunologic: Reports no additional allergic/immunologic complaints [facility] Past Medical History Medical History (Updated 04/03/25 @ 05:28 by Inez Ramos APRN) Anxiety Ulcerative colitis Syncope and collapse Intermittent palpitations Sciatica Rectal bleeding Sleep apnea uses CPAP at night HTN (hypertension) HLD (hyperlipidemia) Surgical History Surgical History H/O hemorrhoidectomy 11/29/20 Multiple hemorrhoid ligation (Transanal hemorrhoid dearterialization procedure) Family History Family History Father Patient's father is Sibling Hypertension Mother Diabetes mellitus Breast cancer Social History Social History (Updated 04/03/25 @ 05:17 by Inez Ramos APRN) Social History: Patient is and has no biological children. 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 Code status: Full code Smoking packs per day: 1 Smoking cigarettes per day: 20.0 Years smoked: 30 Smoking pack-years: 30.00 Smoking status: Former smoker Tobacco type: cigarettes and e-cigarettes/vaping Second hand tobacco smoke exposure: No Smoking end date: 09/05/17 Alcohol intake: former Drinks per week: 1 Substance use: current Substance use type: marijuana Last use: 03/25/25 Lack of Transportation: No Lack of Food: Never True Current Housing: I Have Housing Concerned About Future Housing: No Difficulty Paying Gas/Electric Bills: No Difficulty Paying for Meds: No Currently Unemployed: No Education: Trade/Vocational Certificate Difficulty w/ Childcare or Family Care: No Living arrangements: with family Gender identity (if verbalized by the patient): Male Spiritual care concerns: No Meds Home Medications and Allergies Home Medications ?Medication ?Instructions ?Recorded ?Confirmed ?Type alprazolam 1 mg tablet (Xanax) 1 mg PO HS 04/18/20 04/03/25 History amlodipine 10 mg tablet 10 mg PO DAILY 04/03/25 04/03/25 History rosuvastatin 10 mg tablet 10 mg PO HS 04/03/25 04/03/25 History Allergies Allergy/AdvReac Type Severity Reaction Status Date / Time No Known Allergies Allergy Verified 04/03/25 02:12 Vital Signs Vital Signs - 24 hr 04/02/25 22:52 04/02/25 23:01 04/02/25 23:14 Temperature Pulse Rate 87 92 76 Respiratory Rate 18 18 19 Blood Pressure 153/95 H 149/105 H 149/105 H Pulse Oximetry 98 97 97 04/02/25 23:16 04/03/25 00:29 04/03/25 01:39 Temperature Pulse Rate 82 61 79 Respiratory Rate 14 15 16 Blood Pressure 146/91 H 140/83 141/93 H Pulse Oximetry 96 97 97 04/03/25 02:31 Temperature 97.7 F Pulse Rate 74 Respiratory Rate 22 H Blood Pressure 124/88 Pulse Oximetry 98 Exam Const: General: cooperative, healthy appearing, comfortable, no acute distress, well developed, awake, Physically active, average body habitus and well nourished Nutritional Appearance: average body habitus and well nourished Orientation/consciousness: oriented to person, oriented to place, oriented to time and patient oriented x3 HENMT: Head: normal to inspection, No palpable skull fracture present, normocephalic, atraumatic and abrasion Ears: hearing grossly normal bilaterally and external ears normal Eyes: General: appearance normal, both eyes and all related structures Alignment and Position: alignment normal Periorbital: periorbital findings normal Eyelids: eyelids normal Neck: Neck: normal visual inspection, full ROM and no lymphadenopathy Chest: Chest palpation & inspection: normal inspection of the chest Resp: Effort & Inspection: normal respiratory effort Auscultation: clear to auscultation bilaterally Cardio: Palpation: normal PMI Rate: regular rate Rhythm: regular rhythm Heart sounds: S1 normal heart sound present and S2 normal heart sound present Peripheral pulses: Peripheral pulses 2+ throughout GI: Inspection: normal to inspection Percussion: Yes normal to percussion Auscultation: normal bowel sounds Rectal Exam: deferred Back/Spine/Pelvis: Back: no CVA tenderness Cervical Spine: cervical ROM normal Skin: General skin exam: normal color Lesions: no lesions Rashes: no rashes Trauma: no lacerations or abrasions Wounds: no wounds Hair: normal Nails: normal Neuro: General: oriented to person, oriented to place, oriented to time and patient oriented x3 Cranial nerves: Yes Normal hearing present Cognition (Neuro): normal cognition Speech: normal speech Gait exam (Neuro): Normal gait present Motor exam (neuro): 5/5 motor strength present throughout Sensory Exam: normal sensation Extrem: General: normal to inspection Right upper extremity: normal to inspection and shoulder/upper arm Left upper extremity: normal to inspection and shoulder/upper arm Right lower extremity: normal to inspection Left lower extremity: normal to inspection Psych: Appearance: grossly normal Mental Status: mental status grossly normal Speech and movement: Normal speech and movement present Affect: normal affect Attitude: cooperative Thought process: Normal thought process present Thought content: Yes Normal thought content present Insight: Good insight present (Psych) Judgement: Good judgement present (Psych) Results Labs Labs: Short CBC 04/02/25 04/03/25 Range/Units 23:24 00:27 WBC 8.6 10.4 H (4.5-10.0) K/mm3 Hgb 15.7 15.1 (14.0-18.0) g/dL Hct 45.2 43.3 (42.0-52.0) % Plt Count 301 305 (150-375) k/mm3 [facility] 04/02/25 23:24 Sodium 137 Potassium 3.8 Chloride 107 Carbon Dioxide 24 BUN 21 H Creatinine 1.00 Glucose 121 H Calcium 9.4 Cardiac Enzymes 04/02/25 Range/Units 23:24 Troponin I 0.097 H* (0.000-0.034) ng/mL Liver Function 04/02/25 Range/Units 23:24 Total Bilirubin 0.5 (0.2-1.3) mg/dL AST 28 (17-59) U/L ALT 19 (6-50) U/L Alkaline Phosphatase 68 (38-126) U/L Albumin 4.3 (3.5-5.1) g/dL Attestation: I personally reviewed all lab results ECG Attestation: I personally reviewed and interpreted this ECG as follows: Interpretation: Please see paper chart Quality VTE Prophylaxis VTE prophylaxis: pharmacologic ordered Assessment and Plan Assessment and plan (1) Non-ST elevation VT (NSTEMI): Code(s): I21.4 - Non-ST elevation (NSTEMI) myocardial infarction Status: Acute Assessment and Plan: -the patient stated that he had chest pressure earlier today. He also stated that he attempted to work any became too short of breath and had to stop and rest before he could proceed. Will be became short of breath he also has some chest pressure that did not radiate down his arms but was midsternal. - his troponin was 0.97 and 0.112 -Cardiology has been consulted. -it could be a demand ischemia. -an echo has been ordered. (2) HTN (hypertension): Qualifiers: Hypertension type: primary hypertension Qualified Code(s): I10 - Essential (primary) hypertension Code(s): I10 - Essential (primary) hypertension Status: Acute Assessment and Plan: -The patient has been to [facility] 2 times in last week. Patient stated that he was given IV blood pressure medicine which did help. Also his amlodipine was increased from 5 mg to 10 mg p.o. -continue with amlodipine. -blood pressure is currently 140/80. -p.r.n. hydralazine with parameters. (3) HLD (hyperlipidemia): Code(s): E78.5 - Hyperlipidemia, unspecified Status: Acute Assessment and Plan: -continue with rosuvastatin (4) Sleep apnea: Code(s): G47.30 - Sleep apnea, unspecified Status: Acute Assessment and Plan: -titrate CPAP to home settings. (5) Ulcerative colitis: Code(s): K51.90 - Ulcerative colitis, unspecified, without complications Status: Acute Assessment and Plan: -the patient stated that he no longer has any problems. (6) Anxiety: Code(s): F41.9 - Anxiety disorder, unspecified Status: Acute Assessment and Plan: -continue with home dose of alprazolam.
[2025-04-03 04:37] LABS: Troponin I 0.112 ng/mL (0.000-0.034)
--- NOTE | 2025-04-03 07:18 | P.PNIM_ITS ---
Assessment and Plan Assessment and Plan (1) Non-ST elevation MT (NSTEMI): Code(s): I21.4 - Non-ST elevation (NSTEMI) myocardial infarction Status: Acute Assessment and Plan: - Has had intermittent chest discomfort, shortness of breath associated with elevated blood pressures - EKG no acute ST changes - troponin I 0.097, 0.112, 0.09 - echo pending - continue heparin gtt - cardio consulted, appreciate recs (2) HTN (hypertension): Qualifiers: Hypertension type: primary hypertension Qualified Code(s): I10 - Essential (primary) hypertension Code(s): I10 - Essential (primary) hypertension Status: Acute Assessment and Plan: -The patient has been to [facility] 2 times in last week. Patient stated that he was given IV blood pressure medicine which did help. Also his amlodipine was increased from 5 mg to 10 mg p.o. 3 days ago -continue amlodipine, consider additional agent pending BP trends -blood pressure is currently 140/80. -p.r.n. hydralazine with parameters. (3) HLD (hyperlipidemia): Code(s): E78.5 - Hyperlipidemia, unspecified Status: Acute Assessment and Plan: -continue rosuvastatin (4) Sleep apnea: Code(s): G47.30 - Sleep apnea, unspecified Status: Acute Assessment and Plan: -titrate CPAP to home settings. (5) Ulcerative colitis: Code(s): K51.90 - Ulcerative colitis, unspecified, without complications Status: Acute Assessment and Plan: -not on home medications -no recent flares (6) Anxiety: Code(s): F41.9 - Anxiety disorder, unspecified Status: Acute Assessment and Plan: -continue with home dose of alprazolam. Plan Code status: full code DVT prophylaxis: heparin gtt Dispo: home in 1-2 days pending clinical course Medical Record Review I have reviewed the following patient records and this information was taken into consideration when formulating the assessment and plan.: previous labs Subjective Date/time seen: 04/03/25 07:18 Interval history: Patient seen and examined at bedside. Denies chest discomfort this a.m. and blood pressure has improved. Denies shortness of breath, lightheadedness, diaphoresis, palpitations. Does admit to stress going on home that may be contributing to elevated blood pressures and chest pain. Discussed concern for elevated cardiac enzymes. Awaiting Cardiology recommendations, patient agreeable. Review of Systems Review of Systems: All systems reviewed & are unremarkable except as noted in HPI and below Exam Narrative: General: NAD Eyes: EOMI ENT: neck supple Cardiovascular: Regular rate and rhythm Respiratory: Clear to auscultation, respirations even and unlabored on RA Gastrointestinal: Soft, non tender Genitourinary: no suprapubic tenderness Musculoskeletal: No edema Skin: warm, dry Neuro: Alert. Psych: Anxious Objective Data Vital Signs Vital Signs: Vital Signs - 24 hr 04/02/25 22:52 04/02/25 23:01 04/02/25 23:14 Temperature Pulse Rate 87 92 76 Respiratory Rate 18 18 19 Blood Pressure 153/95 H 149/105 H 149/105 H Pulse Oximetry 98 97 97 Oxygen Delivery 04/02/25 23:16 04/03/25 00:29 04/03/25 01:39 Temperature Pulse Rate 82 61 79 Respiratory Rate 14 15 16 Blood Pressure 146/91 H 140/83 141/93 H Pulse Oximetry 96 97 97 Oxygen Delivery 04/03/25 02:31 04/03/25 02:45 04/03/25 04:00 Temperature 97.7 F Pulse Rate 74 Respiratory Rate 22 H Blood Pressure 124/88 Pulse Oximetry 98 Oxygen Delivery Room Air Room Air 04/03/25 04:00 04/03/25 04:00 04/03/25 06:00 Temperature 98.2 F Pulse Rate 61 70 65 Respiratory Rate 18 Blood Pressure 140/80 Pulse Oximetry 98 Oxygen Delivery Intake/Output Intake/Output: Intake & Output 03/31/25 04/01/25 04/02/25 04/03/25 23:59 23:59 23:59 23:59 Intake Total 250 Output Total 240 Balance 10 Meds/Results Medications: Active Medications Generic Name Dose Route Start Last Admin Trade Name Freq PRN Reason Stop Dose Admin Alprazolam 1 mg 04/03/25 21:00 Alprazolam (*Crx) 0.5 Mg Tablet PO HS [facility] Amlodipine Besylate 10 mg 04/03/25 09:00 Amlodipine Besylate 10 Mg Tablet PO DAILY SIMONA Heparin Sodium (Porcine) 4,000 units 04/03/25 00:04 Heparin Sodium 5,000 Units/Ml Vial IV PUSH PRN PRN aPTT less than 55 seconds Heparin Sodium (Porcine) 3,500 units 04/03/25 00:04 Heparin Sodium 5,000 Units/Ml Vial IV PUSH PRN PRN aPTT 55 - 70 seconds Hydralazine HCl 10 mg 04/03/25 05:25 Hydralazine Hcl 20 Mg/Ml Vial IV PUSH Q8H PRN Blood Pressure - High Heparin Sodium/Dextrose 25,000 units in 250 mls @ 10 mls/hr 04/03/25 00:05 04/03/25 00:40 Heparin Sodium/D5w 100 Units/Ml IV CONT 1,000 units/hr .Q24H SIMONA 10 mls/hr Protocol Administration 1,000 UNITS/HR Perflutren Lipid Microsphere 0 ml 04/03/25 00:16 Perflutren Lipid Microspheres 1.5 Ml Vial Diluted To 10 Ml Total Volume IV PUSH 04/06/25 00:16 ONCE PRN adequate visualization Protocol Rosuvastatin Calcium 10 mg 04/03/25 21:00 Rosuvastatin 10 Mg Tablet PO HS [facility] Radiology Results: ITS Impressions Chest X-Ray 04/03/25 06:27 IMPRESSION: 1. No acute cardiopulmonary findings given portable technique. Labs Labs: Laboratory Results - last 24 hr 04/02/25 04/03/25 04/03/25 23:24 00:27 03:42 WBC 8.6 10.4 H RBC 4.87 4.65 Hgb 15.7 15.1 Hct 45.2 43.3 MCV 92.8 93.1 MCH 32.2 32.5 MCHC 34.7 34.9 RDW 12.6 12.7 Plt Count 301 305 MPV 9.2 9.1 Immature Gran % (Auto) 0.2 0.3 Neut % (Auto) 59.6 65.8 Lymph % (Auto) 30.5 24.8 [place] % (Auto) 7.8 7.5 Eos % (Auto) 1.2 1.0 Baso % (Auto) 0.7 0.6 Lymph # (Auto) 2.62 2.58 [place] # (Auto) 0.7 H 0.8 H Eos # (Auto) 0.1 0.1 Baso # (Auto) 0.1 0.1 Abs Immat Gran (auto) 0.02 0.03 Absolute Neuts (auto) 5.1 6.9 H Absolute Nucleated RBC 0.000 0.000 Nucleated RBC % 0.0 0.0 PT 13.8 14.0 INR 1.1 1.1 APTT 23.8 24.1 Sodium 137 Potassium 3.8 Chloride 107 Carbon Dioxide 24 Anion Gap 6 BUN 21 H Creatinine 1.00 Estim Creat Clear Calc 83 Estimated GFR > 60 Glucose 121 H Calcium 9.4 Total Bilirubin 0.5 AST 28 ALT 19 Alkaline Phosphatase 68 Troponin I 0.097 H* 0.112 H* Total Protein 7.6 Albumin 4.3 Lipase 108 Influenza A (RT-PCR) Negative Influenza B (RT-PCR) Negative RSV (RT-PCR) Negative SARS-CoV-2 RNA (RT-PCR) Negative
[2025-04-03 07:43] LABS: Troponin I 0.090 ng/mL (0.000-0.034)
[2025-04-03 08:27] LABS: Partial Thromboplastin Time 50.6 Seconds (22.3-36.8)
[2025-04-03] MEDS: ASPIRIN 81 MG ENTERIC TABLET PO (11:54)
[2025-04-03] MEDS: NITROGLYCERIN OINTMENT 1 INCH DOSE TRANSDERM ×2 (11:55→18:44)
--- NOTE | 2025-04-03 12:28 | P.CONCA_ITS ---
Assessment and Plan Assessment and plan (1) Non-ST elevation MA (NSTEMI): Code(s): I21.4 - Non-ST elevation (NSTEMI) myocardial infarction Status: Acute (2) Chest pain: Code(s): R07.9 - Chest pain, unspecified Status: Acute (3) HTN (hypertension): Qualifiers: Hypertension type: primary hypertension Qualified Code(s): I10 - Essential (primary) hypertension Code(s): I10 - Essential (primary) hypertension Status: Acute (4) Sleep apnea: Code(s): G47.30 - Sleep apnea, unspecified Status: Acute (5) Chest pain: Code(s): R07.9 - Chest pain, unspecified Status: Acute Plan Elevated trops- suspect type 2 mi due to uncontrolled HTN bp was up to the 200's and he has indiscretionary sodium intake jd consumes more than 4000mg of sodium daily NSTEMI- reviewed with him and in detail about plan for him to get cardiac cath. R/B/A d/w them about cath and are agreeable to proceed. Continue with tele monitor and IV heparin ok for ASA. Would not add plavix until diagnostic cath is done to determine anatomy. Please consult interventionalist for cathlab to do his cardiac cath possible intervention in setting of NSTEMI HTN- likely needs addition of diuretic HCTZ 12.5mg initially and addition of DONELL/ARB for afterload reduction rather than just relying on Norvasc CHOL- check chol as its a RF that needs managed as he eats out at fast food routinely MELYSSA- arrange for CPAP/Autopap Nutrition- get legal practice manager consullt to d/w pt and about sodium reduction in diet History of Present Illness History of Present Illness Consult date/time: 04/03/25 12:28 Reason For Visit: NSTEMI Narrative: 49y/o hx of HTN and ulcerative colitis went to [facility] 2 times in the past week. Had high BP compliant w/ medications when at [facility] he got IV medications and his amlodipine was increased from 5 mg to 10 mg feeling well for approximately 2 days. Second time that he went to [facility] he was told to monitor his blood pressure 3 times a day and follow up with his primary care doctor. 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 He eats self admittedly exorbitant amount of salt recalls having gone to [employer] after leaving hospital and then another restaurant for dinner. They eat at fast food routinely with heavy use of condiments routinelly ranch dressing etc. Denizy has used admetricks 12 hr nasal decongestant prior to this hospitalization. He is currently a nonsmoker nondiabetic has fam hx of diabetes no prior hx of MA or CVA. Troponins are 0.097 and 0.112. EKG did not demonsrate ST elevation The patient was started on heparin drip. I recommended aspirin. Compliant with meds and CPAP for MELYSSA. HE saw Dr Becker in 2020 for workup which showed: Cardiovascular Procedures Echo/MUGA:: 06/07/20 Echo: EF 60-65%, mild LVH, grade II diastolic dysfunction (E/e' 10), trace TR/PI. Electrophysiology:: 05/04/20 22 days event monitor: Sinus rhythm, HR range 40-129 bpm; average HR 68 bpm; <1% PAC's and <1% PVC's. 05/04/20 EKG: Sinus rhythm, IRBBB, borderline ST-T wave in inferior leads. Stress Tests:: 06/07/20 Lexiscan myoview: Negative for ischemia. [facility] Past Medical History Medical History (Updated 04/03/25 @ 05:28 by Inez Ramos APRN) Anxiety Ulcerative colitis Syncope and collapse Intermittent palpitations Sciatica Rectal bleeding Sleep apnea uses CPAP at night HTN (hypertension) HLD (hyperlipidemia) Surgical History Surgical History H/O hemorrhoidectomy 11/29/20 Multiple hemorrhoid ligation (Transanal hemorrhoid dearterialization procedure) Family History Family History Father Patient's father is Sibling Hypertension Mother Diabetes mellitus Breast cancer Social History Social History (Updated 04/03/25 @ 05:17 by Inez Ramos APRN) Social History: Patient is and has no biological children. 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 Code status: Full code Smoking packs per day: 1 Smoking cigarettes per day: 20.0 Years smoked: 30 Smoking pack-years: 30.00 Smoking status: Former smoker Tobacco type: cigarettes and e-cigarettes/vaping Second hand tobacco smoke exposure: No Smoking end date: 09/05/17 Alcohol intake: former Drinks per week: 1 Substance use: current Substance use type: marijuana Last use: 03/25/25 Lack of Transportation: No Lack of Food: Never True Current Housing: I Have Housing Concerned About Future Housing: No Difficulty Paying Gas/Electric Bills: No Difficulty Paying for Meds: No Currently Unemployed: No Education: Trade/Vocational Certificate Difficulty w/ Childcare or Family Care: No Living arrangements: with family Gender identity (if verbalized by the patient): Male Spiritual care concerns: No Meds Home Medications and Allergies Home Medications ?Medication ?Instructions ?Recorded ?Confirmed ?Type alprazolam 1 mg tablet (Xanax) 1 mg PO HS 04/18/20 History amlodipine 10 mg tablet 10 mg PO DAILY 04/03/2503/08 History rosuvastatin 10 mg tablet 10 mg PO HS 04/03/25 5 History Allergies Allergy/AdvReac Type Severity Reaction Status Date / Time No Known Allergies Allergy Verified 04/03/25 02:12 Vital Signs Vital Signs - 24 hr 04/02/25 22:52 04/02/25 23:01 04/02/25 23:14 Temperature Pulse Rate 87 92 76 Respiratory Rate 18 18 19 Blood Pressure 153/95 H 149/105 H 149/105 H Pulse Oximetry 98 97 97 Oxygen Delivery 04/02/25 23:16 04/03/25 00:29 04/03/25 01:39 Temperature Pulse Rate 82 61 79 Respiratory Rate 14 15 16 Blood Pressure 146/91 H 140/83 141/93 H Pulse Oximetry 96 97 97 Oxygen Delivery 04/03/25 02:31 04/03/25 02:45 04/03/25 04:00 Temperature 36.5 C Pulse Rate 74 Respiratory Rate 22 H Blood Pressure 124/88 Pulse Oximetry 98 Oxygen Delivery Room Air Room Air 04/03/25 04:00 04/03/25 04:00 04/03/25 06:00 Temperature 36.8 C Pulse Rate 61 70 65 Respiratory Rate 18 Blood Pressure 140/80 Pulse Oximetry 98 Oxygen Delivery 04/03/25 08:00 04/03/25 08:27 Temperature 36.7 C Pulse Rate 59 L Respiratory Rate 18 Blood Pressure 135/79 Pulse Oximetry 98 96 Oxygen Delivery Room Air Exam 2 Const: General: cooperative, healthy appearing, comfortable, no acute distress and average body habitus HENMT: Head: normal to inspection and normocephalic Resp: Auscultation: clear to auscultation bilaterally Cardio: Jugular venous distension: no JVD Rate: regular rate Rhythm: r egular rhythm Heart sounds: S1 normal heart sound present and S2 normal heart sound present Extrem: General: no pedal edema Results Labs and Meds 04/03/25 00:27 04/02/25 23:24 Lab results: Cardiac Enzymes 04/02/25 04/03/25 04/03/25 Range/Units 23:24 03:42 07:06 AST 28 (17-59) U/L Troponin I 0.097 H* 0.112 H* 0.090 H* (0.000-0.034) ng/mL Coagulation 04/02/25 04/03/25 04/03/25 Range/Units 23:24 00:27 07:06 PT 13.8 14.0 (11.1-14.7) Seconds APTT 23.8 24.1 50.6 H (22.3-36.8) Seconds CBC 04/02/25 04/03/25 Range/Units 23:24 00:27 WBC 8.6 10.4 H (4.5-10.0) K/mm3 RBC 4.87 4.65 (4.6-6.20) M/mm3 Hgb 15.7 15.1 (14.0-18.0) g/dL Hct 45.2 43.3 (42.0-52.0) % Plt Count 301 305 (150-375) k/mm3 Lymph # (Auto) 2.62 2.58 (0.9-3.2) K/mm3 [place] # (Auto) 0.7 H 0.8 H (0.1-0.6) K/mm3 Eos # (Auto) 0.1 0.1 (0-0.3) K/mm3 Baso # (Auto) 0.1 0.1 (0.0-0.1) K/mm3 Comprehensive Metabolic Panel 04/02/25 Range/Units 23:24 Sodium 137 (137-145) mmol/L Potassium 3.8 (3.4-5.0) mmol/L Chloride 107 (98-107) mmol/L Carbon Dioxide 24 (22-30) mmol/L BUN 21 H (9-20) mg/dL Creatinine 1.00 (0.7-1.3) mg/dL Glucose 121 H (65-110) mg/dL Calcium 9.4 (8.4-10.2) mg/dL AST 28 (17-59) U/L ALT 19 (6-50) U/L Alkaline Phosphatase 68 (38-126) U/L Total Protein 7.6 (6.3-8.2) g/dL Albumin 4.3 (3.5-5.1) g/dL Intake and Output 04/02/25 04/03/25 04/03/25 23:59 07:59 15:59 Intake Total 250 80.2 Output Total 240 400 Balance 10 -319.8 Intake: IV 80.2 Heparin Sod/D5w 100 Units/ml 25 80.2 ,000 units In 250 ml @ 1,400 UNITS/HR 14 mls/hr IV CONT . [id number] [facility] Rx#:[id number] Oral 250 0 Output: Urine 240 400 Other: Number of Bowel Movements Today 0 Patient Weight 04/03/25 23:59 Weight 87.9 kg
[2025-04-03 14:48] LABS: Partial Thromboplastin Time 117.0 Seconds (22.3-36.8)
--- NOTE | 2025-04-03 17:55 | ADMGEN ---
This patient, Cash Callejas, was admitted to IMU Room 211-01 @ 1755. Patient/family oriented to hospital policies and general routines including ID bracelet, bed and alarms, visiting hours, pain management, procedures, bathroom and other care routines, personal items, smoking policy, room service/diet, and visiting hours. Information on how to activate the Rapid Response Team has been discussed. Patient/Family are encouraged to report perceived risks to care and to ask questions if they do not understand what they are told or what they should do.
[2025-04-03] MEDS: ROSUVASTATIN 10 MG TABLET PO (21:01)
[2025-04-03] MEDS: ALPRAZolam (*CRX) 0.5 MG TABLET 1 MG PO (21:01)
[2025-04-03] MEDS: ACETAMINOPHEN 325 MG TABLET 650 MG PO (21:01)
[2025-04-03] MEDS: HEPARIN SOD/D5W 100 UNITS/ML 25,000 UNITS/250 ML BAG 12 UNITS IV CONT (21:01)
[2025-04-03] MEDS: DOCUSATE SODIUM 100 MG CAPSULE PO (21:01)
[2025-04-03 22:29] LABS: Partial Thromboplastin Time 76.1 Seconds (22.3-36.8)
[2025-04-04] VITALS (27 sets, daily range): BP systolic 116–155; BP diastolic 65–98; PULSE 59–91; RESP 15–22; TEMP 36.5–37.1; O2SAT 96–100
[2025-04-04] MEDS: NITROGLYCERIN OINTMENT 1 INCH DOSE TRANSDERM ×3 (00:09→14:57)
[2025-04-04 04:22] LABS: Hematocrit 45.2 % (42.0-52.0); Hemoglobin 15.3 g/dL (14.0-18.0); Immature Granulocyte Percent A 0.4 % (0-0.5); Lymphocytes Absolute Auto 2.71 K/mm3 (0.9-3.2); Mean Corpuscular HGB Conc 33.8 g/dl (32-36); Mean Corpuscular Hemoglobin 32.5 pg (26-34); Mean Corpuscular Volume 96.0 fl (80-100); Nucleated Red Blood Cells Absolute Auto 0.000 K/mm3 (0.0-0.012); Nucleated Red Blood Cells Perc 0.0 % (0.0-0.2); Platelet Count Result 304 k/mm3 (150-375); Red Blood Count 4.71 M/mm3 (4.6-6.20); White Blood Count 9.0 K/mm3 (4.5-10.0)
[2025-04-04] MEDS: ACETAMINOPHEN 325 MG TABLET 650 MG PO ×2 (04:34→17:30)
[2025-04-04 04:42] LABS: Anion Gap 5 mmol/L (4-12); Blood Urea Nitrogen 17 mg/dL (9-20); Calcium 9.0 mg/dL (8.4-10.2); Carbon Dioxide 27 mmol/L (22-30); Chloride 106 mmol/L (98-107); Estimated CRCL calculation 75 ml/min; Estimated Glomerular Filt Rate > 60; Glucose 101 mg/dL (65-110); Potassium 4.2 mmol/L (3.4-5.0); Sodium 138 mmol/L (137-145)
--- NOTE | 2025-04-04 06:00 | ECHO_ITS ---
Patient Info Name: Cash Callejas Age: 49 years : 1975 Gender: Male Ht: 71 in Wt: 193 lbs BSA: 2.11 m2 HR: 59 bpm BP: 130 / 84 mmHg Technical Quality: Good Exam Date: 04/04/2025 2:58 PM Patient Status: I Admit Date: 04/04/2025 Exam Type: CA echo doppler color flow Complete two-dimensional, color flow and Doppler transthoracic echocardiogram is performed. Staff Referring Physician: Delano Kennedy [employer] Manager: Judah Britt III Attending Provider: [place] Summary 1. Left ventricular chamber size, wall thickness, systolic and diastolic function are normal with no regional wall motion abnormalities with an estimated ejection fraction of >70. 2. Right ventricular chamber dimension is normal. 3. Right ventricular systolic function is normal. 4. No significant valvular abnormality. Left Ventricle Left ventricular chamber size, wall thickness, systolic and diastolic function are normal with no regional wall motion abnormalities with an estimated ejection fraction of >70. Right Ventricle Right ventricular chamber dimension is normal. Right ventricular systolic function is normal. Left Atria Left atrial chamber dimension is normal. Right Atria Right atrial chamber dimension is normal. Aortic Valve The aortic valve is probable trileaflet. There is mild aortic valve sclerosis. Pulmonic Valve Pulmonic valve is structurally and functionally normal by two-dimensional, color flow Doppler and Doppler interrogation. Mitral Valve Mitral valve is structurally and functionally normal to two-dimensional, color flow Doppler and Doppler interrogation. Tricuspid Valve The tricuspid valve is structurally and functionally normal by two-dimensional, color flow Doppler and Doppler interrogation. There is trace tricuspid valve regurgitation. Pulmonary Arteries Main pulmonary artery is normal by two dimensional, color flow and Doppler interrogation. Pericardium/Pleural Pericardium is normal in appearance with no evidence for significant pericardial effusion. Aorta The aortic root size at the sinus of Valsalva is normal. Left Ventricular Outflow Tract Name Value Normal LVOT 2D LVOT Diameter 2.1 cm LVOT Doppler LVOT Peak Velocity 133 cm/s LVOT Peak Gradient 7 mmHg LVOT Mean Gradient 3 mmHg LVOT VTI 25 cm LVOT VTI/AV VTI Ratio 0.9 LVOT Stroke Volume 88 ml LVOT CO 6.8 l/min LVOT CI 3.2 l/min/m2 Pulmonic Valve Name Value Normal PV Doppler PV Peak Velocity 107 cm/s PV Peak Gradient 5 mmHg PV Mean Gradient 2 mmHg Mitral Valve Name Value Normal MV Doppler MV Peak Gradient 3 mmHg MV Mean Gradient 1 mmHg MV Area (Cont Eq VTI) 3.6 cm2 MV Diastolic Function MV E Peak Velocity 88 cm/s MV A Peak Velocity 61 cm/s MV E/A 1.4 MV Decel Time (PW) 162 ms MV Annular TDI MV E/e' (Septal) 9.1 MV E/e' (Lateral) 8.1 MV E/e' (Average) 8.6 Tricuspid Valve Name Value Normal TV Annular TDI TV Lateral Maribel s' Velocity 15.5 cm/s >=9.5 Aortic Valve Name Value Normal AV Doppler AV Peak Velocity 164 cm/s AV Peak Gradient 11 mmHg AV Mean Gradient 6 mmHg AV VTI 27 cm AV Area (Cont Eq VTI) 3.2 cm2 >=3.0 AV Area (Cont Eq Faraz) 2.9 cm2 AV DI (Faraz) 0.81 AV Regurgitation 2D LVOT Area 3.5 cm2 Ventricles Name Value Normal LV Dimensions 2D/MM IVS Diastolic Thickness (2D) 1.0 cm 0.6-1.0 LVID Diastole (2D) 4.8 cm 4.2-5.8 LVIW Diastolic Thickness (2D) 1.0 cm 0.6-1.0 LVID Systole (2D) 2.8 cm 2.5-4.0 LVOT Diameter 2.1 cm LV Mass (2D Cubed) 174.57 g 88.00-224.00 LV Mass Index (2D Cubed) 83 g/m2 49-115 Relative Wall Thickness (2D) 0.43 <=0.42 LV Fractional Shortening/Ejection Fraction 2D/MM LV Fractional Shortening (2D) 41 % 25-43 LV EF (2D Teichholz) 72 % LV Diastolic Volume (4C MOD) 76 ml LV EF (4C MOD) 75 % LV Diastolic Volume (2C MOD) 77 ml LV EF (2C MOD) 62 % LV Diastolic Volume (BP MOD) 77 ml 62-150 LV Diastolic Volume Index (BP MOD) 37 ml/m2 34-74 LV Systolic Volume (BP MOD) 23 ml 21-61 LV Systolic Volume Index (BP MOD) 11 ml/m2 11-31 LV EF (BP MOD) 70 % 52-72 LV Diastolic Length (4C) 7.9 cm LV Systolic Length (4C) 6.1 cm LV Stroke Volume (4C MOD) 57 ml Atria Name Value Normal LA Dimensions LA Volume (4C A-L) 60 ml LA Volume (BP A-L) 58 ml RA Dimensions RA Systolic Major [place] Length (4C) 5.1 cm 2.1-2.7 RA Area (4C) 17.0 cm2 <=18.0 Report Signatures
[2025-04-04 06:14] LABS: Partial Thromboplastin Time 68.5 Seconds (22.3-36.8)
[2025-04-04] MEDS: HEPARIN SOD/D5W 100 UNITS/ML 25,000 UNITS/250 ML BAG 14 UNITS IV CONT ×2 (06:46→22:55)
--- NOTE | 2025-04-04 11:02 | P.SEDATION_ITS ---
Moderate Sedation Note-Pt Data Patient Data Diagnosis: NSTEMI Present Complaint: Chest Procedure to be performed/Plan: Coronary angiogram Allergies Allergy/AdvReac Type Severity Reaction Status Date / Time No Known Allergies Allergy Verified 04/03/25 02:12 Home Medications ?Medication ?Instructions ?Recorded ?Confirmed ?Type alprazolam 1 mg tablet (Xanax) 1 mg PO 04/18/20 History amlodipine 10 mg tablet 10 mg PO DAILY 04/03/2503/08 History rosuvastatin 10 mg tablet 10 mg PO HS 04/03/25 5 History Current Medications: Active Medications Acetaminophen (Acetaminophen 325 Mg Tablet) 650 mg PO Q6H PRN PRN Reason: Mild Pain (1-3) or Fever Last Admin: 04/04/25 04:34 Dose: 650 mg Alprazolam (Alprazolam (*Crx) 0.5 Mg Tablet) 1 mg PO [facility] Last Admin: 04/03/25 21:01 Dose: 1 mg Amlodipine Besylate (Amlodipine Besylate 10 Mg Tablet) 10 mg PO DAILY [facility] Last Admin: 04/03/25 08:37 Dose: 10 mg Aspirin (Aspirin 81 Mg Enteric Tablet) [facility] Docusate Sodium (Docusate Sodium 100 Mg Capsule) 100 mg PO Q12H PRN PRN Reason: Constipation Last Admin: 04/03/25 21:01 Dose: 100 mg Heparin Sodium (Porcine) (Heparin Sodium 5,000 Units/Ml Vial) 4,000 units IV PUSH PRN PRN PRN Reason: aPTT less than 55 seconds Last Admin: 04/03/25 08:41 Dose: 4,000 units Heparin Sodium (Porcine) (Heparin Sodium 5,000 Units/Ml Vial) 3,500 units IV PUSH PRN PRN PRN Reason: aPTT 55 - 70 seconds Last Admin: 04/04/25 06:41 Dose: 3,500 units Hydralazine HCl (Hydralazine Hcl 20 Mg/Ml Vial) 10 mg IV PUSH Q8H PRN PRN Reason: Blood Pressure - High Hydrochlorothiazide (Hydrochlorothiazide 12.5 Mg Capsule) [facility] Heparin Sodium/Dextrose (Heparin Sodium/D5w 100 Units/Ml) 25,000 units in 250 mls @ 14 mls/hr IV CONT .[id number] [facility]; Protocol Last Admin: 04/04/25 06:46 Dose: 1,400 units/hr, 14 mls/hr Nitroglycerin (Nitroglycerin Ointment 1 Inch Dose) 1 inch TRANSDERM Q6HR [facility] Last Admin: 04/04/25 06:15 Dose: 1 inch Perflutren Lipid Microsphere (Perflutren Lipid Microspheres 1.5 Ml Vial Diluted To 10 Ml Total Volume) 0 ml IV PUSH ONCE PRN; Protocol PRN Reason: adequate visualization Stop: 04/06/25 00:16 Rosuvastatin Calcium (Rosuvastatin 10 Mg Tablet) 10 mg PO HS [facility] Last Admin: 04/03/25 21:01 Dose: 10 mg Sedation/Anesthesia: No previous sedation/anesthesia problems (including family history). [facility], [facility] Past Medical History Medical History Anxiety Ulcerative colitis Syncope and collapse Intermittent palpitations Sciatica Rectal bleeding Sleep apnea uses CPAP at night HTN (hypertension) HLD (hyperlipidemia) Surgical History Surgical History H/O hemorrhoidectomy 11/29/20 Multiple hemorrhoid ligation (Transanal hemorrhoid dearterialization procedure) Family History Family History Father Patient's father is Sibling Hypertension Mother Diabetes mellitus Breast cancer Social History Social History Social History: Patient is and has no biological children. 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 Code status: Full code Smoking packs per day: 1 Smoking cigarettes per day: 20.0 Years smoked: 30 Smoking pack-years: 30.00 Smoking status: Former smoker Tobacco type: cigarettes and e-cigarettes/vaping Second hand tobacco smoke exposure: No Smoking end date: 09/05/17 Alcohol intake: former Drinks per week: 1 Substance use: current Substance use type: marijuana Last use: 03/25/25 Lack of Transportation: No Lack of Food: Never True Current Housing: I Have Housing Concerned About Future Housing: No Difficulty Paying Gas/Electric Bills: No Difficulty Paying for Meds: No Currently Unemployed: No Education: Trade/Vocational Certificate Difficulty w/ Childcare or Family Care: No Living arrangements: with family Gender identity (if verbalized by the patient): Male Spiritual care concerns: No Mod Sed Physical Exam Physical Exam Pre Procedural Exam: Normal: Appearance, Eyes, Ears, Nose, Neck, Throat, Airway, Lungs, Heart Size, Heart Rate, Heart Rhythm, Neuro Exam, Abdomen, Liver, Kidneys, Spleen, Breasts, Genitalia, Extremities and Skin Hours since solid foods: 8 Hours since liquid intake: 8 Mallampati Classification: class 1 Internal Medicine - PN: Obj Da Vital Signs Vital Signs: Vital Signs - 24 hr 04/03/25 12:00 04/03/25 12:00 04/03/25 12:00 Temperature 36.7 C Pulse Rate 62 75 Respiratory Rate 18 Blood Pressure 141/81 H Pulse Oximetry 100 97 Oxygen Delivery Room Air 04/03/25 14:00 04/03/25 15:15 04/03/25 16:00 Temperature 36.8 C Pulse Rate 73 73 68 Respiratory Rate 18 Blood Pressure 158/85 H Pulse Oximetry 97 Oxygen Delivery 04/03/25 16:00 04/03/25 18:00 04/03/25 20:00 Temperature 36.6 C Pulse Rate 65 60 Respiratory Rate 15 Blood Pressure 128/77 Pulse Oximetry 97 99 Oxygen Delivery Room Air 04/03/25 20:00 04/03/25 22:00 04/03/25 23:02 Temperature Pulse Rate 63 76 Respiratory Rate 16 Blood Pressure Pulse Oximetry Oxygen Delivery Autopap 04/04/25 00:00 04/04/25 00:00 04/04/25 02:00 Temperature 36.5 C Pulse Rate 59 L 67 65 Respiratory Rate 20 Blood Pressure 116/65 Pulse Oximetry 98 Oxygen Delivery 04/04/25 03:36 04/04/25 04:00 04/04/25 04:00 Temperature 36.5 C Pulse Rate 60 59 L Respiratory Rate 15 16 Blood Pressure 130/84 Pulse Oximetry 100 Oxygen Delivery Autopap 04/04/25 06:00 04/04/25 08:00 Temperature 36.6 C Pulse Rate 65 70 Respiratory Rate 18 Blood Pressure 121/83 Pulse Oximetry 100 Oxygen Delivery Intake/Output Intake/Output: Intake & Output 04/01/25 04/02/25 04/03/25 04/04/25 23:59 23:59 23:59 23:59 Intake Total 1523.8 667.2 Output Total 1390 900 Balance 133.8 -232.8 Meds/Results Medications: Active Medications Generic Name Dose Route Start Last Admin Trade Name Freq PRN Reason Stop Dose Admin Acetaminophen 650 mg 04/03/25 20:00 04/04/25 04:34 Acetaminophen 325 Mg Tablet PO 650 mg Q6H PRN Administration Mild Pain (1-3) or Fever Alprazolam 1 mg 04/03/25 21:00 04/03/25 21:01 Alprazolam (*Crx) 0.5 Mg Tablet PO 1 mg HS SIMONA Administration Amlodipine Besylate 10 mg 04/03/25 09:00 04/03/25 08:37 Amlodipine Besylate 10 Mg Tablet PO 10 mg DAILY SIMONA Administration Aspirin 81 mg 04/04/25 09:00 Aspirin 81 Mg Enteric Tablet PO QAM [facility] Docusate Sodium 100 mg 04/03/25 20:00 04/03/25 21:01 Docusate Sodium 100 Mg Capsule PO 100 mg Q12H PRN Administration Constipation Heparin Sodium (Porcine) 4,000 units 04/03/25 00:04 04/03/25 08:41 Heparin Sodium 5,000 Units/Ml Vial IV PUSH 4,000 units PRN PRN Administration aPTT less than 55 seconds Heparin Sodium (Porcine) 3,500 units 04/03/25 00:04 04/04/25 06:41 Heparin Sodium 5,000 Units/Ml Vial IV PUSH 3,500 units PRN PRN Administration aPTT 55 - 70 seconds Hydralazine HCl 10 mg 04/03/25 05:25 Hydralazine Hcl 20 Mg/Ml Vial IV PUSH Q8H PRN Blood Pressure - High Hydrochlorothiazide 12.5 mg 04/04/25 09:00 Hydrochlorothiazide 12.5 Mg Capsule PO QAM [facility] Heparin Sodium/Dextrose 25,000 units in 250 mls @ 14 mls/hr 04/03/25 00:05 04/04/25 06:46 Heparin Sodium/D5w 100 Units/Ml IV CONT 1,400 units/hr .[id number] SIMONA 14 mls/hr Protocol Administration 1,400 UNITS/HR Nitroglycerin 1 inch 04/03/25 12:00 04/04/25 06:15 Nitroglycerin Ointment 1 Inch Dose TRANSDERM 1 inch Q6HR [facility] Administration Perflutren Lipid Microsphere 0 ml 04/03/25 00:16 Perflutren Lipid Microspheres 1.5 Ml Vial Diluted To 10 Ml Total Volume IV PUSH 04/06/25 00:16 ONCE PRN adequate visualization Protocol Rosuvastatin Calcium 10 mg 04/03/25 21:00 04/03/25 21:01 Rosuvastatin 10 Mg Tablet PO 10 mg HS SIMONA Administration Radiology Results: ITS Impressions Chest X-Ray 04/03/25 06:27 IMPRESSION: 1. No acute cardiopulmonary findings given portable technique. Labs 04/04/25 04:05 04/04/25 04:05 Labs: Laboratory Results - last 24 hr 04/03/25 04/03/25 04/04/25 14:24 22:11 04:05 WBC 9.0 RBC 4.71 Hgb 15.3 Hct 45.2 MCV 96.0 MCH 32.5 MCHC 33.8 RDW 12.4 Plt Count 304 MPV 9.6 Immature Gran % (Auto) 0.4 Neut % (Auto) 57.9 Lymph % (Auto) 30.0 [place] % (Auto) 9.7 H Eos % (Auto) 1.3 Baso % (Auto) 0.7 Lymph # (Auto) 2.71 [place] # (Auto) 0.9 H Eos # (Auto) 0.1 Baso # (Auto) 0.1 Abs Immat Gran (auto) 0.04 H Absolute Neuts (auto) 5.2 Absolute Nucleated RBC 0.000 Nucleated RBC % 0.0 APTT 117.0 H 76.1 H Sodium 138 Potassium 4.2 Chloride 106 Carbon Dioxide 27 Anion Gap 5 BUN 17 Creatinine 1.11 Estim Creat Clear Calc 75 Estimated GFR > 60 Glucose 101 Calcium 9.0 04/04/25 05:53 WBC RBC Hgb Hct MCV MCH MCHC RDW Plt Count MPV Immature Gran % (Auto) Neut % (Auto) Lymph % (Auto) [place] % (Auto) Eos % (Auto) Baso % (Auto) Lymph # (Auto) [place] # (Auto) Eos # (Auto) Baso # (Auto) Abs Immat Gran (auto) Absolute Neuts (auto) Absolute Nucleated RBC Nucleated RBC % APTT 68.5 H Sodium Potassium Chloride Carbon Dioxide Anion Gap BUN Creatinine Estim Creat Clear Calc Estimated GFR Glucose Calcium ASA Classification/Sedation ASA Classification/Sedation ASA Class: I Emergent: No Risks: Risks, benefits and alternatives explained and patient/family accepted plan for sedation. Patient re-evaluated immediately prior to sedation.
--- NOTE | 2025-04-04 11:03 | P.PCNCC_ITS ---
Cardiac Cath Procedure Note Date of procedure:: 04/04/25 Performing physician:: Lane Toure MD Indication:: NSTEMI Brief clinical history:: This is a 49-year-old patient history of hypertension hyperlipidemia who presented here to the hospital with uncontrolled hypertension. His troponins noticed to be elevated therefore cardiac catheterization was requested to rule out CAD. Procedure Procedure performed:: 1-Moderate sedation that started at 1004 and ended at 10:53 a.m. total duration 49 minutes using5 mg of Versed and 100mcg fentanyl. The registered nurse was jaycee van. 2-Selective left and right coronary angiogram. 3-Left heart catheterization with measurement of LVEDP and measurement of gradient across aortic valve. 4-LV angiogram. 4-Right common femoral arterial angiogram. 5-Deployment of 6 [place] Angio-Seal. Sedation/Medication given:: Moderate sedation. Access site:: Right common femoral artery. Estimated blood loss:: 10cc Procedure note:: After informed consent patient was brought in to stucco laborer with the was draped and prepped in usual manner. Moderate sedation was given and the right groin was infiltrated using 1% lidocaine. Five [place] sheath was obtained using micropuncture needle and the modified Seldinger technique. Selective left coronary angiogram was done using JL4 catheter with the tip of the catheter placed in the left main coronary artery. Selective right coronary angiogram was done using JR4 catheter with the tip of the catheter placed to the right coronary artery. After that 5 [place] pigtail catheter was advanced across the aortic valve into the left ventricle with measurement of LVEDP and measurement of gradient across aortic valve. Right common femoral arterial angiogram was done. Findings:: 1- left coronary artery is a large artery that divides into large LAD, large circumflex artery. Left main has minimal irregularities. There is small branch coming of the left main that appears to be totally occluded proximally. 2- left anterior descending artery is a large artery that runs and wraps around the apex. Ostial LAD 90% and after diagonal branch 80% and in the mid segment 90%. There is a major large diagonal branch coming off proximally with minimal irregularities. 3- leftcircumflex artery is a medium caliber and appears to be free of disease. 4- right coronary artery is large and with a proximal 50-60%. Distally 50%. 5- LVEDP was 15 mm mercury and no gradient across aortic valve. 6-LV angiogram shows normal ejection fraction 65%. 6- opening arterial pressure was 108/80 and closing pressure was 96/68. 7- right femoral artery angiogram shows no significant disease in the right common femoral artery. Assessment and Plan Assessment and plan (1) Non-ST elevation [place] (NSTEMI): Code(s): I21.4 - Non-ST elevation (NSTEMI) myocardial infarction Status: Acute Plan -will plan to transfer the patient to [facility] for high-risk intervention LAD involving the ostium, proximal mid segment. -
--- NOTE | 2025-04-04 11:03 | WPDHPUPDATE1 ---
History and Physical Update Update Date/Time: 04/04/25 11:03 History and Physical has been reviewed, including an updated exam of the patient. There are NO changes in the patient's condition. Risks, benefits, and alternatives have been discussed and questions answered. Patient agrees to proceed with procedure.
--- NOTE | 2025-04-04 11:30 | SUR.PHASEII ---
spoke with [facility], triage questions answered.
[2025-04-04] MEDS: SODIUM CHLORIDE 0.9% IV 1,000 ML 100 ML IV CONT (12:45)
--- NOTE | 2025-04-04 14:47 | PCCARD ---
Pt. unavailable for echo @ 4215. Nurse said he has not returned from testing.
--- NOTE | 2025-04-04 14:48 | P.PNIM_ITS ---
Assessment and Plan Assessment and Plan (1) Non-ST elevation [place] (NSTEMI): Code(s): I21.4 - Non-ST elevation (NSTEMI) myocardial infarction Status: Acute Assessment and Plan: - Has had intermittent chest discomfort, shortness of breath associated with elevated blood pressures - EKG no acute ST changes - troponin I 0.097, 0.112, 0.09 - echo pending - continue heparin gtt - s/p [facility] 04/04 with Ostial LAD 90% and after diagonal branch 80% and in the mid segment 90%. - pending transfer to [facility] for high-risk PCI (2) HTN (hypertension): Qualifiers: Hypertension type: primary hypertension Qualified Code(s): I10 - Essential (primary) hypertension Code(s): I10 - Essential (primary) hypertension Status: Acute Assessment and Plan: -The patient has been to [facility] 2 times in last week. Patient stated that he was given IV blood pressure medicine which did help. Also his amlodipine was increased from 5 mg to 10 mg p.o. 3 days ago -continue amlodipine, consider additional agent pending BP trends -blood pressure is currently 141/85. -p.r.n. hydralazine with parameters. (3) HLD (hyperlipidemia): Code(s): E78.5 - Hyperlipidemia, unspecified Status: Acute Assessment and Plan: -continue rosuvastatin (4) Sleep apnea: Code(s): G47.30 - Sleep apnea, unspecified Status: Acute Assessment and Plan: -titrate CPAP to home settings. (5) Ulcerative colitis: Code(s): K51.90 - Ulcerative colitis, unspecified, without complications Status: Acute Assessment and Plan: -not on home medications -no recent flares (6) Anxiety: Code(s): F41.9 - Anxiety disorder, unspecified Status: Acute Assessment and Plan: -continue with home dose of alprazolam. Plan Code status: full code DVT prophylaxis: heparin gtt Dispo: home in 1-2 days pending clinical course Medical Record Review I have reviewed the following patient records and this information was taken into consideration when formulating the assessment and plan.: previous labs Subjective Date/time seen: 04/04/25 14:48 Interval history: Patient seen and examined at bedside. Denies chest pain this AM. BP improved. Admits to anxiety regarding C. Noted plans to transfer to [facility] for high-risk PCI. Review of Systems Review of Systems: All systems reviewed & are unremarkable except as noted in HPI and below Exam Narrative: General: NAD Eyes: EOMI ENT: neck supple Cardiovascular: Regular rate and rhythm Respiratory: Clear to auscultation, respirations even and unlabored on RA Gastrointestinal: Soft, non tender Genitourinary: no suprapubic tenderness Musculoskeletal: No edema Skin: warm, dry Neuro: Alert. Psych: Anxious Objective Data Vital Signs Vital Signs: Vital Signs - 24 hr 04/03/25 15:15 04/03/25 16:00 04/03/25 16:00 Temperature 98.3 F Pulse Rate 73 68 Pulse Rate [Bilateral Pedal (Dorsalis Pedis)] Respiratory Rate 18 Blood Pressure 158/85 H Pulse Oximetry 97 97 Oxygen Delivery Room Air 04/03/25 18:00 04/03/25 20:00 04/03/25 20:00 Temperature 97.8 F Pulse Rate 65 60 63 Pulse Rate [Bilateral Pedal (Dorsalis Pedis)] Respiratory Rate 15 Blood Pressure 128/77 Pulse Oximetry 99 Oxygen Delivery 04/03/25 22:00 04/03/25 23:02 04/04/25 00:00 Temperature 97.7 F Pulse Rate 76 59 L Pulse Rate [Bilateral Pedal (Dorsalis Pedis)] Respiratory Rate 16 20 Blood Pressure 116/65 Pulse Oximetry 98 Oxygen Delivery Autopap 04/04/25 00:00 04/04/25 02:00 04/04/25 03:36 Temperature Pulse Rate 67 65 Pulse Rate [Bilateral Pedal (Dorsalis Pedis)] Respiratory Rate 15 Blood Pressure Pulse Oximetry Oxygen Delivery Autopap 04/04/25 04:00 04/04/25 04:00 04/04/25 06:00 Temperature 97.7 F Pulse Rate 60 59 L 65 Pulse Rate [Bilateral Pedal (Dorsalis Pedis)] Respiratory Rate 16 Blood Pressure 130/84 Pulse Oximetry 100 Oxygen Delivery 04/04/25 08:00 04/04/25 11:16 04/04/25 11:16 Temperature 97.9 F 97.9 F Pulse Rate 70 63 Pulse Rate [Bilateral Pedal (Dorsalis Pedis)] 63 Respiratory Rate 18 19 Blood Pressure 121/83 144/86 H Pulse Oximetry 100 100 Oxygen Delivery Room Air 04/04/25 11:30 04/04/25 11:30 04/04/25 11:45 Temperature Pulse Rate 64 73 Pulse Rate [Bilateral Pedal (Dorsalis Pedis)] 73 Respiratory Rate 20 16 Blood Pressure 140/84 136/85 Pulse Oximetry 100 96 Oxygen Delivery Room Air Room Air 04/04/25 11:45 04/04/25 11:50 04/04/25 11:50 Temperature Pulse Rate 74 Pulse Rate [Bilateral Pedal (Dorsalis Pedis)] 73 74 Respiratory Rate 15 Blood Pressure 146/90 H Pulse Oximetry 99 Oxygen Delivery Room Air 04/04/25 12:05 04/04/25 12:05 04/04/25 12:15 Temperature Pulse Rate 76 89 Pulse Rate [Bilateral Pedal (Dorsalis Pedis)] 76 Respiratory Rate 22 H 15 Blood Pressure 143/94 H 155/94 H Pulse Oximetry 99 98 Oxygen Delivery Room Air Room Air 04/04/25 12:15 04/04/25 12:45 04/04/25 12:45 Temperature Pulse Rate 71 Pulse Rate [Bilateral Pedal (Dorsalis Pedis)] 71 71 Respiratory Rate 16 Blood Pressure 133/89 Pulse Oximetry 98 Oxygen Delivery Room Air 04/04/25 13:15 04/04/25 14:15 Temperature 98.1 F 98.4 F Pulse Rate 66 82 Pulse Rate [Bilateral Pedal (Dorsalis Pedis)] Respiratory Rate 16 16 Blood Pressure 137/87 141/85 H Pulse Oximetry 98 98 Oxygen Delivery Intake/Output Intake/Output: Intake & Output 04/01/25 04/02/25 04/03/25 04/04/25 23:59 23:59 23:59 23:59 Intake Total 1523.8 938.5 Output Total 1390 900 Balance 133.8 38.5 Meds/Results Medications: Active Medications Generic Name Dose Route Start Last Admin Trade Name Freq PRN Reason Stop Dose Admin Acetaminophen 650 mg 04/03/25 20:00 04/04/25 04:34 Acetaminophen 325 Mg Tablet PO 650 mg Q6H PRN Administration Mild Pain (1-3) or Fever Alprazolam 1 mg 04/03/25 21:00 04/03/25 21:01 Alprazolam (*Crx) 0.5 Mg Tablet PO 1 mg HS SIMONA Administration Amlodipine Besylate 10 mg 04/03/25 09:00 04/03/25 08:37 Amlodipine Besylate 10 Mg Tablet PO 10 mg DAILY SIMONA Administration Aspirin 81 mg 04/04/25 09:00 Aspirin 81 Mg Enteric Tablet PO QAM [facility] Docusate Sodium 100 mg 04/03/25 20:00 04/03/25 21:01 Docusate Sodium 100 Mg Capsule PO 100 mg Q12H PRN Administration Constipation Heparin Sodium (Porcine) 4,000 units 04/03/25 00:04 04/03/25 08:41 Heparin Sodium 5,000 Units/Ml Vial IV PUSH 4,000 units PRN PRN Administration aPTT less than 55 seconds Heparin Sodium (Porcine) 3,500 units 04/03/25 00:04 04/04/25 06:41 Heparin Sodium 5,000 Units/Ml Vial IV PUSH 3,500 units PRN PRN Administration aPTT 55 - 70 seconds Hydralazine HCl 10 mg 04/03/25 05:25 Hydralazine Hcl 20 Mg/Ml Vial IV PUSH Q8H PRN Blood Pressure - High Hydrochlorothiazide 12.5 mg 04/04/25 09:00 Hydrochlorothiazide 12.5 Mg Capsule PO QAM [facility] Heparin Sodium/Dextrose 25,000 units in 250 mls @ 0 mls/hr 04/03/25 00:05 04/04/25 09:00 Heparin Sodium/D5w 100 Units/Ml IV CONT 0 units/hr .Q0M SIMONA 0 mls/hr Protocol Titration Sodium Chloride 1,000 mls @ 100 mls/hr 04/04/25 12:00 04/04/25 12:45 Normal Saline Iv IV CONT 04/04/25 18:00 100 mls/hr .Q10H SIMONA Administration Nitroglycerin 1 inch 04/03/25 12:00 04/04/25 06:15 Nitroglycerin Ointment 1 Inch Dose TRANSDERM 1 inch Q6HR SIMONA Administration Perflutren Lipid Microsphere 0 ml 04/03/25 00:16 Perflutren Lipid Microspheres 1.5 Ml Vial Diluted To 10 Ml Total Volume IV PUSH 04/06/25 00:16 ONCE PRN adequate visualization Protocol Rosuvastatin Calcium 10 mg 04/03/25 21:00 04/03/25 21:01 Rosuvastatin 10 Mg Tablet PO 10 mg HS SIMONA Administration Radiology Results: ITS Impressions Chest X-Ray 04/03/25 06:27 IMPRESSION: 1. No acute cardiopulmonary findings given portable technique. Labs Labs: Laboratory Results - last 24 hr 04/03/25 04/03/25 04/04/25 14:24 22:11 04:05 WBC 9.0 RBC 4.71 Hgb 15.3 Hct 45.2 MCV 96.0 MCH 32.5 MCHC 33.8 RDW 12.4 Plt Count 304 MPV 9.6 Immature Gran % (Auto) 0.4 Neut % (Auto) 57.9 Lymph % (Auto) 30.0 [place] % (Auto) 9.7 H Eos % (Auto) 1.3 Baso % (Auto) 0.7 Lymph # (Auto) 2.71 [place] # (Auto) 0.9 H Eos # (Auto) 0.1 Baso # (Auto) 0.1 Abs Immat Gran (auto) 0.04 H Absolute Neuts (auto) 5.2 Absolute Nucleated RBC 0.000 Nucleated RBC % 0.0 APTT 117.0 H 76.1 H Sodium 138 Potassium 4.2 Chloride 106 Carbon Dioxide 27 Anion Gap 5 BUN 17 Creatinine 1.11 Estim Creat Clear Calc 75 Estimated GFR > 60 Glucose 101 Calcium 9.0 04/04/25 05:53 WBC RBC Hgb Hct MCV MCH MCHC RDW Plt Count MPV Immature Gran % (Auto) Neut % (Auto) Lymph % (Auto) [place] % (Auto) Eos % (Auto) Baso % (Auto) Lymph # (Auto) [place] # (Auto) Eos # (Auto) Baso # (Auto) Abs Immat Gran (auto) Absolute Neuts (auto) Absolute Nucleated RBC Nucleated RBC % APTT 68.5 H Sodium Potassium Chloride Carbon Dioxide Anion Gap BUN Creatinine Estim Creat Clear Calc Estimated GFR Glucose Calcium
[2025-04-04] MEDS: ASPIRIN 81 MG ENTERIC TABLET PO (14:56)
--- NOTE | 2025-04-04 17:24 | P.PNCA_ITS ---
Progress Note: A&P Assessment and Plan (1) Non-ST elevation [place] (NSTEMI): Code(s): I21.4 - Non-ST elevation (NSTEMI) myocardial infarction Status: Acute (2) HTN (hypertension): Qualifiers: Hypertension type: primary hypertension Qualified Code(s): I10 - Essential (primary) hypertension Code(s): I10 - Essential (primary) hypertension Status: Acute (3) Sleep apnea: Code(s): G47.30 - Sleep apnea, unspecified Status: Acute Plan Elevated trops- suspect type 2 mi due to uncontrolled HTN bp was up to the 200's and he has indiscretionary sodium intake jd consumes more than 4000mg of sodium daily cardiac cath demonstrated high grade CAD NSTEMI- reviewed with him and in detail about the cardiac cath findings. He will be tx to [facility] for eval for complex CAD management. Cath was done today demonstrating ostial LAD disease and mid LAD disease. Echo demonstrated preserved LV EF. DO NOT ADD PLAVIX HE WILL BE EVALUATED AT [facility] AND PLANNED FOR MANAGEMENT OF HIS CORONARY ANATOMY AND THEY CAN ADD PLAVIX AFTER THEIR REVIEW. 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 Reviewed with him and his that he needs tx to [facility] for eval for complex CAD and review choices for managment mainly consider [facility] best options since he is quite young Exam HENMT: Head: normal to inspection, normocephalic and atraumatic Resp: Effort & Inspection: normal respiratory effort Auscultation: clear to auscultation bilaterally Cardio: Rate: regular rate Rhythm: regular rhythm Heart sounds: S1 normal heart sound present and S2 normal heart sound present Extrem: General: no pedal edema Objective Data Vital Signs Vital Signs: Vital Signs - 24 hr 04/03/25 18:00 04/03/25 20:00 04/03/25 20:00 Temperature 36.6 C Pulse Rate 65 60 63 Pulse Rate [Bilateral Pedal (Dorsalis Pedis)] Respiratory Rate 15 Blood Pressure 128/77 Pulse Oximetry 99 Oxygen Delivery 04/03/25 22:00 04/03/25 23:02 04/04/25 00:00 Temperature 36.5 C Pulse Rate 76 59 L Pulse Rate [Bilateral Pedal (Dorsalis Pedis)] Respiratory Rate 16 20 Blood Pressure 116/65 Pulse Oximetry 98 Oxygen Delivery Autopap 04/04/25 00:00 04/04/25 02:00 04/04/25 03:36 Temperature Pulse Rate 67 65 Pulse Rate [Bilateral Pedal (Dorsalis Pedis)] Respiratory Rate 15 Blood Pressure Pulse Oximetry Oxygen Delivery Autopap 04/04/25 04:00 04/04/25 04:00 04/04/25 06:00 Temperature 36.5 C Pulse Rate 60 59 L 65 Pulse Rate [Bilateral Pedal (Dorsalis Pedis)] Respiratory Rate 16 Blood Pressure 130/84 Pulse Oximetry 100 Oxygen Delivery 04/04/25 08:00 04/04/25 11:16 04/04/25 11:16 Temperature 36.6 C 36.6 C Pulse Rate 70 63 Pulse Rate [Bilateral Pedal (Dorsalis Pedis)] 63 Respiratory Rate 18 19 Blood Pressure 121/83 144/86 H Pulse Oximetry 100 100 Oxygen Delivery Room Air 04/04/25 11:30 04/04/25 11:30 04/04/25 11:45 Temperature Pulse Rate 64 73 Pulse Rate [Bilateral Pedal (Dorsalis Pedis)] 73 Respiratory Rate 20 16 Blood Pressure 140/84 136/85 Pulse Oximetry 100 96 Oxygen Delivery Room Air Room Air 04/04/25 11:45 04/04/25 11:50 04/04/25 11:50 Temperature Pulse Rate 74 Pulse Rate [Bilateral Pedal (Dorsalis Pedis)] 73 74 Respiratory Rate 15 Blood Pressure 146/90 H Pulse Oximetry 99 Oxygen Delivery Room Air 04/04/25 12:05 04/04/25 12:05 04/04/25 12:15 Temperature Pulse Rate 76 89 Pulse Rate [Bilateral Pedal (Dorsalis Pedis)] 76 Respiratory Rate 22 H 15 Blood Pressure 143/94 H 155/94 H Pulse Oximetry 99 98 Oxygen Delivery Room Air Room Air 04/04/25 12:15 04/04/25 12:45 04/04/25 12:45 Temperature Pulse Rate 71 Pulse Rate [Bilateral Pedal (Dorsalis Pedis)] 71 71 Respiratory Rate 16 Blood Pressure 133/89 Pulse Oximetry 98 Oxygen Delivery Room Air 04/04/25 13:15 04/04/25 14:15 Temperature 36.7 C 36.9 C Pulse Rate 66 82 Pulse Rate [Bilateral Pedal (Dorsalis Pedis)] Respiratory Rate 16 16 Blood Pressure 137/87 141/85 H Pulse Oximetry 98 98 Oxygen Delivery Intake/Output Intake/Output: Intake & Output 04/01/25 04/02/25 04/03/25 04/04/25 23:59 23:59 23:59 23:59 Intake Total 1523.8 938.5 Output Total 1390 900 Balance 133.8 38.5 Meds/Results Medications: Active Medications Generic Name Dose Route Start Last Admin Trade Name Freq PRN Reason Stop Dose Admin Acetaminophen 650 mg 04/03/25 20:00 04/04/25 04:34 Acetaminophen 325 Mg Tablet PO 650 mg Q6H PRN Administration Mild Pain (1-3) or Fever Alprazolam 1 mg 04/03/25 21:00 04/03/25 21:01 Alprazolam (*Crx) 0.5 Mg Tablet PO 1 mg HS SIMONA Administration Amlodipine Besylate 10 mg 04/03/25 09:00 04/04/25 14:56 Amlodipine Besylate 10 Mg Tablet PO 10 mg DAILY SIMONA Administration Aspirin 81 mg 04/04/25 09:00 04/04/25 14:56 Aspirin 81 Mg Enteric Tablet PO 81 mg QAM SIMONA Administration Docusate Sodium 100 mg 04/03/25 20:00 04/03/25 21:01 Docusate Sodium 100 Mg Capsule PO 100 mg Q12H PRN Administration Constipation Heparin Sodium (Porcine) 4,000 units 04/03/25 00:04 04/03/25 08:41 Heparin Sodium 5,000 Units/Ml Vial IV PUSH 4,000 units PRN PRN Administration aPTT less than 55 seconds Heparin Sodium (Porcine) 3,500 units 04/03/25 00:04 04/04/25 06:41 Heparin Sodium 5,000 Units/Ml Vial IV PUSH 3,500 units PRN PRN Administration aPTT 55 - 70 seconds Hydralazine HCl 10 mg 04/03/25 05:25 Hydralazine Hcl 20 Mg/Ml Vial IV PUSH Q8H PRN Blood Pressure - High Hydrochlorothiazide 12.5 mg 04/04/25 09:00 04/04/25 14:56 Hydrochlorothiazide 12.5 Mg Capsule PO 12.5 mg QAM SIMONA Administration Heparin Sodium/Dextrose 25,000 units in 250 mls @ 0 mls/hr 04/03/25 00:05 04/04/25 09:00 Heparin Sodium/D5w 100 Units/Ml IV CONT 0 units/hr .Q0M SIMONA 0 mls/hr Protocol Titration Sodium Chloride 1,000 mls @ 100 mls/hr 04/04/25 12:00 04/04/25 12:45 Normal Saline Iv IV CONT 04/04/25 18:00 100 mls/hr .Q10H SIMONA Administration Nitroglycerin 1 inch 04/03/25 12:00 04/04/25 14:57 Nitroglycerin Ointment 1 Inch Dose TRANSDERM 1 inch Q6HR SIMONA Administration Perflutren Lipid Microsphere 0 ml 04/03/25 00:16 Perflutren Lipid Microspheres 1.5 Ml Vial Diluted To 10 Ml Total Volume IV PUSH 04/06/25 00:16 ONCE PRN adequate visualization Protocol Rosuvastatin Calcium 10 mg 04/03/25 21:00 04/03/25 21:01 Rosuvastatin 10 Mg Tablet PO 10 mg HS SIMONA Administration Radiology Results: ITS Impressions Chest X-Ray 04/03/25 06:27 IMPRESSION: 1. No acute cardiopulmonary findings given portable technique. Labs Labs: Laboratory Results - last 24 hr 04/03/25 04/04/25 04/04/25 22:11 04:05 05:53 WBC 9.0 RBC 4.71 Hgb 15.3 Hct 45.2 MCV 96.0 MCH 32.5 MCHC 33.8 RDW 12.4 Plt Count 304 MPV 9.6 Immature Gran % (Auto) 0.4 Neut % (Auto) 57.9 Lymph % (Auto) 30.0 [place] % (Auto) 9.7 H Eos % (Auto) 1.3 Baso % (Auto) 0.7 Lymph # (Auto) 2.71 [place] # (Auto) 0.9 H Eos # (Auto) 0.1 Baso # (Auto) 0.1 Abs Immat Gran (auto) 0.04 H Absolute Neuts (auto) 5.2 Absolute Nucleated RBC 0.000 Nucleated RBC % 0.0 APTT 76.1 H 68.5 H Sodium 138 Potassium 4.2 Chloride 106 Carbon Dioxide 27 Anion Gap 5 BUN 17 Creatinine 1.11 Estim Creat Clear Calc 75 Estimated GFR > 60 Glucose 101 Calcium 9.0
[2025-04-04] MEDS: DOCUSATE SODIUM 100 MG CAPSULE PO (18:01)
[2025-04-04] MEDS: ALPRAZolam (*CRX) 0.5 MG TABLET 1 MG PO (20:14)
[2025-04-04] MEDS: ROSUVASTATIN 10 MG TABLET PO (20:15)
[2025-04-04 23:42] LABS: Partial Thromboplastin Time 65.1 Seconds (22.3-36.8)
[2025-04-05] VITALS: BP 135/72; PULSE 78; PULSE 80; RESP 17; TEMP 37.1; O2SAT 99
[2025-04-05] MEDS: NITROGLYCERIN OINTMENT 1 INCH DOSE TRANSDERM (00:41)
[2025-04-05] MEDS: ACETAMINOPHEN 325 MG TABLET 650 MG PO (00:41)
[2025-04-05] MEDS: HEPARIN SOD/D5W 100 UNITS/ML 25,000 UNITS/250 ML BAG 16 UNITS IV CONT (00:50)
== END 2025-04-05 02:12 | disposition short-term general hospital (02) | DRG 190 ==
LOC: ANHED 04-03 00:15 → ANHIMU 04-03 01:16
PROVIDERS: Internal Medicine Cardiovascular Disease; Nurse Practitioner; Physician Assistant; Admitting Provider Internal Medicine; Emergency Provider Student in an Organized Health Care Education/Training Program; PCP Emergency Medicine; Visit Provider Internal Medicine Cardiovascular Disease
PROC: 4A023N7 Measurement of Cardiac Sampling and Pressure, Left Heart, Percutaneous Approach (ICD-10-PCS; CPT 93452; principal; 2025-04-04 09:30)
PROC: 4A023N7 Measurement of Cardiac Sampling and Pressure, Left Heart, Percutaneous Approach (ICD-10-PCS; 2025-04-04 09:30)
DX: I21.4 Non-ST elevation (NSTEMI) myocardial infarction (principal); I25.10 Atherosclerotic heart disease of native coronary artery without angina pectoris; E78.5 Hyperlipidemia, unspecified; K51.90 Ulcerative colitis, unspecified, without complications; I10 Essential (primary) hypertension; G47.33 Obstructive sleep apnea (adult) (pediatric); F41.9 Anxiety disorder, unspecified; F10.90 Alcohol use, unspecified, uncomplicated; F12.90 Cannabis use, unspecified, uncomplicated; Z99.89 Dependence on other enabling machines and devices; Z87.891 Personal history of nicotine dependence; Z87.19 Personal history of other diseases of the digestive system; Z20.822 Contact with and (suspected) exposure to COVID-19
CPT/HCPCS: 36415; 71045; 80048; 80053; 83690; 84484; 85025; 85610; 85730; 87637; 93005; 93306; 93458; 99285; A9270; C1760; C1887; C1894; G0269; G0378; J1644; J2003; J2250; J3010; J7030; J7040